=== PATIENT | female | born 1940 | race Caucasian/White ===

== ENCOUNTER 2019-01-12 10:30 | Emergency (ER) | payer MEDICARE ==
[~2019-01-12] VITALS: Ht 142.2 cm; Wt 55.9 kg
[~2019-01-12 10:30] MED LIST: ASPI-1265 PO; GABA-530 PO; HYDR-4353 PO; HYDR25TA4 PO; METF500T PO; MORP15TA PO; SITA50TA PO; SODI1TAB59 PO
[2019-01-12 10:48] VITALS: BP 124/71
--- NOTE | 2019-01-12 11:42 | NUR ---
ekg 1137
== END 2019-01-12 12:24 | disposition home or self-care (01) ==
LOC: ER 10:30
DX: S20.211A Contusion of right front wall of thorax, initial encounter (principal); Z79.82 Long term (current) use of aspirin; Z79.84 Long term (current) use of oral hypoglycemic drugs; Z79.899 Other long term (current) drug therapy; W18.39XA Other fall on same level, initial encounter; Y93.01 Activity, walking, marching and hiking; Y92.89 Other specified places as the place of occurrence of the external cause; Y99.8 Other external cause status
CPT/HCPCS: 71101; 99284

== ENCOUNTER 2019-02-13 16:13 | Emergency (ER) | payer MEDICARE ==
[~2019-02-13] VITALS: Ht 142.2 cm; Wt 118.0 kg
[2019-02-13] MEDS ORDERED: normal saline 1000ML IV soln IVB ONE (17:00)
[2019-02-13 17:33] LABS: BASOPHILS # (AUTO) 0.1 X10'3 (0-0.2); BASOPHILS % (AUTO) 1.3 % (0-1); EOSINOPHILS # (AUTO) 0.4 X10'3 (0-0.9); EOSINOPHILS % (AUTO) 7.1 % (0-6); HEMATOCRIT 40.4 % (35.0-45.0); HEMOGLOBIN 13.5 g/dl (12.0-16.0); LYMPHOCYTES # (AUTO) 1.9 X10'3 (1.1-4.8); LYMPHOCYTES % (AUTO) 35.4 % (21-51); MEAN CORPUSCULAR HEMOGLOBIN 30.2 PG (27.0-31.0); MEAN CORPUSCULAR HGB CONC 33.4 g/dL (33.0-36.5); MEAN CORPUSCULAR VOLUME 90.5 FL (78-98); MEAN PLATELET VOLUME 10.4 FL (7.4-10.4); MONOCYTES # (AUTO) 0.4 X10'3 (0-0.9); MONOCYTES % (AUTO) 7.3 % (2-12); NEUTROPHILS # (AUTO) 2.6 X10'3 (1.8-7.7); NEUTROPHILS % (AUTO) 48.9 % (42-75); PLATELET COUNT 194 X10'3 (140-440); RED BLOOD COUNT 4.47 X10'6 (4.20-5.60); RED CELL DISTRIBUTION WIDTH 14.1 % (11.5-14.5); WHITE BLOOD COUNT 5.3 X10'3 (4.5-11.0)
[2019-02-13 17:48] LABS: CLARITY,URINE CLEAR (Clear); COLOR,URINE STRAW (Yellow); GLUCOSE, URINE >=1000 mg/dl (Neg); KETONES,URINE NEGATIVE (Neg); LEUKOCYTE ESTERASE ,URINE NEGATIVE (Neg); NITRITES, URINE NEGATIVE (Neg); OCCULT BLOOD,URINE NEGATIVE (Neg); PH,URINE 5.5 (4.8-8.0); PROTEIN,URINE NEGATIVE (Neg); UA COLLECTION TYPE CLN CATCH MIDSTREAM; UROBILINOGEN,URINE 0.2 E.U/dL (0.2-1.0)
[2019-02-13 17:50] LABS: ALANINE AMINOTRANSFERASE 26 U/L (12-78); ALBUMIN 3.6 G/DL (3.4-5.0); ALBUMIN/GLOBULIN RATIO 0.9 (1.1-1.5); ALKALINE PHOSPHATASE 101 IU/L (46-116); ANION GAP 11 (8-16); ASPARTATE AMINO TRANSFERASE 22 U/L (10-37); BILIRUBIN,TOTAL 0.2 MG/DL (0.1-1.0); BLOOD UREA NITROGEN 13 MG/DL (7-18); BUN/CREATININE RATIO 14.9 (6.6-38.0); CALCIUM 8.8 MG/DL (8.5-10.1); CHLORIDE 102 MMOL/L (99-107); CREATININE 0.87 MG/DL (0.40-0.90); GLUCOSE 362 MG/DL (70-104); POTASSIUM 3.6 MMOL/L (3.5-5.1); SODIUM 136 MMOL/L (135-145); TOTAL CARBON DIOXIDE 22.7 MMOL/L (24-32); TOTAL PROTEIN 7.4 G/DL (6.4-8.2); eGFR 63 ML/MIN
[2019-02-13 17:57] VITALS: BP 114/64
[2019-02-13 17:58] LABS: SQUAMOUS EPITHELIAL CELL,UR FEW /LPF (FEW); WBC,URINE 0-4 /HPF (0-4); YEAST FEW /HPF (NEGATIVE)
[2019-02-13 17:59] LABS: BACTERIA,URINE NONE SEEN /HPF (Neg); RBC,URINE NONE SEEN /HPF (0-2)
== END 2019-02-13 18:53 | disposition home or self-care (01) ==
LOC: ER 16:14
DX: E11.65 Type 2 diabetes mellitus with hyperglycemia (principal); Z79.4 Long term (current) use of insulin; Z79.82 Long term (current) use of aspirin; Z79.899 Other long term (current) drug therapy
CPT/HCPCS: 36415; 70450; 80053; 81001; 82948; 85025; 93005; 99284; J7030

== ENCOUNTER 2019-05-26 08:31 | Inpatient (IN) | payer MEDICARE, MEDICAID ==
[~2019-05-26] VITALS: Ht 142.2 cm; Wt 55.5 kg
[2019-05-26] MEDS ORDERED: aspirin 81mg tab.chew PO ONE (08:40)
--- NOTE | 2019-05-26 08:54 | NUR ---
patient had [address] in via ems, aware, ok to hold
[2019-05-26 09:15] LABS: BASOPHILS # (AUTO) 0.1 X10'3 (0-0.2); BASOPHILS % (AUTO) 0.9 % (0-1); EOSINOPHILS # (AUTO) 0.3 X10'3 (0-0.9); EOSINOPHILS % (AUTO) 4.7 % (0-6); HEMATOCRIT 38.3 % (35.0-45.0); LYMPHOCYTES # (AUTO) 1.6 X10'3 (1.1-4.8); LYMPHOCYTES % (AUTO) 28.1 % (21-51); MEAN CORPUSCULAR HEMOGLOBIN 30.5 PG (27.0-31.0); MEAN CORPUSCULAR HGB CONC 33.8 g/dL (33.0-36.5); MEAN CORPUSCULAR VOLUME 90.1 FL (78-98); MEAN PLATELET VOLUME 10.5 FL (7.4-10.4); MONOCYTES # (AUTO) 0.4 X10'3 (0-0.9); MONOCYTES % (AUTO) 7.1 % (2-12); NEUTROPHILS # (AUTO) 3.3 X10'3 (1.8-7.7); NEUTROPHILS % (AUTO) 59.2 % (42-75); PLATELET COUNT 178 X10'3 (140-440); RED BLOOD COUNT 4.25 X10'6 (4.20-5.60); RED CELL DISTRIBUTION WIDTH 13.5 % (11.5-14.5); WHITE BLOOD COUNT 5.6 X10'3 (4.5-11.0)
[2019-05-26 09:27] LABS: ALANINE AMINOTRANSFERASE 24 U/L (12-78); ALBUMIN 3.5 G/DL (3.4-5.0); ALKALINE PHOSPHATASE 72 IU/L (46-116); ANION GAP 13 (8-16); ASPARTATE AMINO TRANSFERASE 14 U/L (10-37); BILIRUBIN,TOTAL 0.4 MG/DL (0.1-1.0); BLOOD UREA NITROGEN 15 MG/DL (7-18); BUN/CREATININE RATIO 16.7 (6.6-38.0); CALCIUM 9.3 MG/DL (8.5-10.1); CHLORIDE 102 MMOL/L (99-107); GLUCOSE 385 MG/DL (70-104); POTASSIUM 4.2 MMOL/L (3.5-5.1); SODIUM 139 MMOL/L (135-145); TOTAL CARBON DIOXIDE 23.9 MMOL/L (24-32); TOTAL PROTEIN 7.1 G/DL (6.4-8.2); eGFR 60 ML/MIN
[2019-05-26 09:32] LABS: MAGNESIUM 1.5 MG/DL (1.5-2.4)
[2019-05-26] MEDS ORDERED: normal saline 1000ML IV soln IVB ONE (09:40)
[2019-05-26] MEDS ORDERED: insulin regular, human 10 units/0.1 ml syringe IV ONE (09:40)
[2019-05-26] MEDS ORDERED: potassium Cl 20 mEq SR tablet PO PRN ×2 (09:55)
[2019-05-26] MEDS ORDERED: docusate sod 100mg capsule PO PRN (09:55)
[2019-05-26] MEDS ORDERED: mag hydrox/Alum hydrox/simeth 30ml oral suspension PO PRN (09:55)
[2019-05-26] MEDS ORDERED: glucagon, human recombinant 1mg kit SUBCUT PRN (09:55)
[2019-05-26] MEDS ORDERED: magnesium 4gm in 100ml NS 100 ML IV PRN (09:55)
[2019-05-26] MEDS ORDERED: MESSAGE TO PHARMACY PO ONE (09:55)
[2019-05-26] MEDS ORDERED: ondansetron/PF 4mg/2ml inj IV PRN (09:55)
[2019-05-26] MEDS ORDERED: dextrose ORAL solution 15 GM/59 ML bottle PO PRN ×2 (09:55)
[2019-05-26] MEDS ORDERED: magnesium Cl slow-release 64mg tablet PO PRN (09:55)
[2019-05-26] MEDS ORDERED: potassium CL 10mEq/100ml bag 100 ML IV PRN ×2 (09:55)
[2019-05-26] MEDS ORDERED: magnesium 2GM in 50ml NS 50 ML IV PRN (09:55)
[2019-05-26] MEDS ORDERED: dextrose 50%-water 50ml dispensing syringe IV PRN ×2 (09:55)
[2019-05-26] MEDS ORDERED: ATOR-2 PO (10:06)
[2019-05-26] MEDS ORDERED: ziprasidone IM 20mg inj **IM only IM ONE (10:25)
--- NOTE | 2019-05-26 10:36 | NUR ---
I TRIED TO COMPLETE HER MED REC, BUT SHE IS A POOR HISTORIAN AND CONFUSED
[2019-05-26 11:00] VITALS: BP 118/63
[2019-05-26] MEDS ORDERED: thiamine inj. 100 MG in normal saline 100ml IV soln 100 ML IV ONE (11:05)
[2019-05-26] MEDS ORDERED: LORazepam 2 mg/ml vial IV PRN (11:05)
[2019-05-26] MEDS ORDERED: haloperidol 5mg tablet PO PRN (11:05)
[2019-05-26] MEDS ORDERED: LORazepam 1 MG tablet PO PRN (11:05)
[2019-05-26] MEDS ORDERED: haloperidol lactate 5mg/ml inj IM PRN (11:05)
[2019-05-26] MEDS ORDERED: MVI, adult No.4 with vit. K 10 ML in dextrose 5% water 500ml 500 ML IV ONE ×2 (11:15)
[2019-05-26] MEDS ORDERED: NITR0.4T SL (11:16)
[2019-05-26] MEDS ORDERED: LANTUS SQ (11:16)
[2019-05-26] MEDS ORDERED: HYDR-4353 PO (11:18)
--- NOTE | 2019-05-26 11:38 | NUR ---
paged Dr. Solis asking if he wants a UA "Re: new admit in 311- April Marie. do you want a UA on her? none were ordered and just curious if you wanted us to send one. thanks, tee coombs [phone]"
[2019-05-26 12:13] LABS: HEMOGLOBIN A1C 11.3 % (4.5-6.2)
[2019-05-26 14:44] LABS: CLARITY,URINE CLEAR (Clear); COLOR,URINE YELLOW (Yellow); GLUCOSE, URINE >=1000 mg/dl (Neg); KETONES,URINE TRACE mg/dl (Neg); LEUKOCYTE ESTERASE ,URINE NEGATIVE (Neg); NITRITES, URINE NEGATIVE (Neg); OCCULT BLOOD,URINE NEGATIVE (Neg); PROTEIN,URINE NEGATIVE (Neg); UROBILINOGEN,URINE 0.2 E.U/dL (0.2-1.0)
[2019-05-26 14:47] LABS: UA COLLECTION TYPE NON-SPECIFIED
[2019-05-26 14:51] LABS: BACTERIA,URINE NONE SEEN /HPF (Neg); MUCUS STRANDS NONE SEEN /LPF (Neg); RBC,URINE NONE SEEN /HPF (0-2); SQUAMOUS EPITHELIAL CELL,UR FEW /LPF (FEW); WBC,URINE NONE SEEN /HPF (0-4)
[2019-05-26 15:00] VITALS: BP 106/57
--- NOTE | 2019-05-26 15:00 | NUR ---
SPOKE WITH DR. LU-CLARIFIED PATIENT'S ORIENTATION OPPOSED TO THE CHART/REPORT, PATIENT CONFIRMED TO HAVE A DISABLED DAUGHTER LIVING AT HOME WITH HER. PT'S SON, JOSE, HAS BEEN HERE VISITING THE PATIENT AND CONFIRMED THIS INFORMATION, AND SAID HE HELPS TAKE CARE OF THE PATIENT AND HIS DISABLED SISTER. PT'S SON REPORTS INCREASING CONFUSION/"MIX UPS" THE PATIENT IS HAVING WELL SOME AGGRESSIVE BEHAVIOR AT TIMES, ESPECIALLY AT NIGHT. HE ALSO REPORTS THAT THE PATIENT "DOESN'T TAKE HER MEDICATIONS INSTRUCTED, SOME OF WHICH SHE HAS STOPPED ALTOGETHER" (I.E. METFORMIN). DR. LU AND CHARGE NURSE MADE AWARE OF ALL OF THIS INFORMATION.
[2019-05-26 18:00] VITALS: BP 96/61
[2019-05-26] MEDS: insulin Lispro (HumaLOG) vial - multi-dose SQ SCH ×2 (18:03→18:56)
--- NOTE | 2019-05-26 18:19 | NUR ---
Problems reprioritized. Patient report given, questions answered & plan of care reviewed with ALEJANDRA.
[2019-05-26] MEDS: insulin glargine (Lantus) pen - multi-dose SQ SCH (20:57)
--- NOTE | 2019-05-26 21:21 | NUR ---
patient requested something for sleep. Called Dr. Salgado, got an order of restoril 15mg PO one time only. no other orders were given at this time.
[2019-05-26] MEDS ORDERED: temazepam 15mg capsule PO ONE (21:25)
[2019-05-26] MEDS: acetaminophen 325mg tablet PO PRN (21:52)
[2019-05-26 22:00] VITALS: BP 113/73
[2019-05-27 02:00] VITALS: BP 133/76
[2019-05-27 06:00] VITALS: BP 125/74
--- NOTE | 2019-05-27 06:00 | NUR ---
I have received report from Talia AHUJA and Roshni AHUJA and had the opportunity to ask questions and assume patient care.
[2019-05-27 06:48] LABS: BASOPHILS % (AUTO) 0.5 % (0-1); EOSINOPHILS # (AUTO) 0.4 X10'3 (0-0.9); EOSINOPHILS % (AUTO) 6.2 % (0-6); HEMATOCRIT 40.1 % (35.0-45.0); HEMOGLOBIN 13.6 g/dl (12.0-16.0); LYMPHOCYTES # (AUTO) 2.4 X10'3 (1.1-4.8); LYMPHOCYTES % (AUTO) 36.6 % (21-51); MEAN CORPUSCULAR HEMOGLOBIN 30.5 PG (27.0-31.0); MEAN CORPUSCULAR HGB CONC 33.9 g/dL (33.0-36.5); MEAN PLATELET VOLUME 10.7 FL (7.4-10.4); MONOCYTES # (AUTO) 0.5 X10'3 (0-0.9); MONOCYTES % (AUTO) 7.1 % (2-12); NEUTROPHILS # (AUTO) 3.3 X10'3 (1.8-7.7); NEUTROPHILS % (AUTO) 49.6 % (42-75); PLATELET COUNT 175 X10'3 (140-440); RED BLOOD COUNT 4.45 X10'6 (4.20-5.60); RED CELL DISTRIBUTION WIDTH 13.4 % (11.5-14.5); WHITE BLOOD COUNT 6.7 X10'3 (4.5-11.0)
[2019-05-27 06:53] LABS: ALANINE AMINOTRANSFERASE 27 U/L (12-78); ALBUMIN 3.5 G/DL (3.4-5.0); ALBUMIN/GLOBULIN RATIO 0.9 (1.1-1.5); ALKALINE PHOSPHATASE 71 IU/L (46-116); AMYLASE 72 U/L (25-115); ANION GAP 10 (8-16); ASPARTATE AMINO TRANSFERASE 22 U/L (10-37); BILIRUBIN,TOTAL 0.4 MG/DL (0.1-1.0); BLOOD UREA NITROGEN 16 MG/DL (7-18); BUN/CREATININE RATIO 17.2 (6.6-38.0); CALCIUM 9.3 MG/DL (8.5-10.1); CHLORIDE 106 MMOL/L (99-107); CHOL/HDL RATIO 3.9 (0.00-4.99); CHOLESTEROL 252 MG/DL (0-200); CREATININE 0.93 MG/DL (0.40-0.90); GLUCOSE 227 MG/DL (70-104); HDL CHOLESTEROL 64 MG/DL (35-60); LDL CHOLESTEROL 160 MG/DL (50-100); LIPASE 284 U/L (73-393); MAGNESIUM 1.8 MG/DL (1.5-2.4); PHOSPHORUS 3.7 MG/DL (2.3-4.5); POTASSIUM 3.8 MMOL/L (3.5-5.1); SODIUM 143 MMOL/L (135-145); TOTAL CARBON DIOXIDE 27.1 MMOL/L (24-32); TOTAL PROTEIN 7.2 G/DL (6.4-8.2); TRIGLYCERIDES 110 MG/DL (20-135); eGFR 58 ML/MIN
[2019-05-27] MEDS: aspirin 81mg tab.chew PO SCH (07:49)
[2019-05-27] MEDS: atorvastatin 20mg tablet PO SCH (07:49)
[2019-05-27] MEDS: thiamine 100mg tablet PO SCH (07:49)
[2019-05-27] MEDS: folic acid 1mg tablet PO SCH (07:49)
[2019-05-27] MEDS: multivitamins, therapeutics tablet PO SCH (07:49)
[2019-05-27] MEDS: K and/or MAG REPLACEMENT MC SCH (08:00)
[2019-05-27] MEDS ORDERED: enoxaparin 40mg/0.4ml syringe SQ SCH (08:00)
[2019-05-27] MEDS ORDERED: thiamine inj. 100 MG, folic acid inj. 2 MG in normal saline 100ml IV soln 100 ML IV SCH (08:00)
[2019-05-27] MEDS ORDERED: MVI, adult No.4 with vit. K 10 ML in dextrose 5% water 500ml 500 ML IV SCH ×2 (08:00)
[2019-05-27] MEDS ORDERED: non-formulary drug (Atorvastatin Calcium 1 TAB) PO SCH (08:00)
[2019-05-27] MEDS: insulin Lispro (HumaLOG) vial - multi-dose SQ SCH ×2 (08:09→21:50)
[2019-05-27] MEDS: acetaminophen 325mg tablet PO PRN ×2 (08:14→20:23)
[2019-05-27] MEDS ORDERED: normal saline 1000ml 1,000 ML IV SCH (08:50)
[2019-05-27] MEDS: diatr meglu/diatrizoate 30ml oral sol.-(3 dose) bottle PO SCH ×3 (10:34→15:30)
[2019-05-27 11:00] VITALS: BP 113/63
--- NOTE | 2019-05-27 14:10 | NUR ---
DM consult, A1c is 11.3; history uncontrolled DM II, Januvia and metformin at home. Per H&P patient is a fair historian however is delusional currently, possible dementia. Patient is not appropriate for bedside DM education at this time d/t confusion. Will need written DM education handout with verbal review and referral to outpatient DM education class if able before discharge. Has history of EtOH, drinks 1-2 4 oz bottle of wine/day, currently receiving thiamine and folic acid. Eating well, 75-100% PO intake of carb controlled, heart healthy diet. Will continue to follow. Recommend: 1. continue carb controlled, heart healthy diet 2. monitor for DM education-confused today per physical assessment and MD Note 3. weight per rx Addendum: 05/27/19 at [address] Amended: Links added.
[2019-05-27] MEDS ORDERED: iohexol 300mg/ml 100ml inj. ONE (15:35)
[2019-05-27 17:00] VITALS: BP 101/60
[2019-05-27 18:00] VITALS: BP 114/43
--- NOTE | 2019-05-27 18:25 | NUR ---
Problems reprioritized. Patient report given, questions answered & plan of care reviewed with Briana AHUJA and Roshni AHUJA.
[2019-05-27] MEDS: insulin glargine (Lantus) pen - multi-dose SQ SCH (21:47)
[2019-05-27 22:00] VITALS: BP 110/65
[2019-05-27] MEDS ORDERED: temazepam 15mg capsule PO PRN (23:05)
[2019-05-27] MEDS ORDERED: HYDROcodone/acetaminophen 5mg/325mg tablet PO PRN (23:05)
[2019-05-27] MEDS: HYDROcodone/acetaminophen 10/325mg tab PO PRN (23:29)
[2019-05-28 02:00] VITALS: BP 95/67
[2019-05-28 05:01] LABS: BASOPHILS % (AUTO) 0.6 % (0-1); EOSINOPHILS # (AUTO) 0.3 X10'3 (0-0.9); HEMOGLOBIN 12.2 g/dl (12.0-16.0); LYMPHOCYTES # (AUTO) 2.9 X10'3 (1.1-4.8); MEAN CORPUSCULAR HEMOGLOBIN 30.8 PG (27.0-31.0); MEAN CORPUSCULAR VOLUME 90.6 FL (78-98); MEAN PLATELET VOLUME 10.2 FL (7.4-10.4); MONOCYTES # (AUTO) 0.8 X10'3 (0-0.9); MONOCYTES % (AUTO) 9.7 % (2-12); NEUTROPHILS # (AUTO) 4.3 X10'3 (1.8-7.7); NEUTROPHILS % (AUTO) 51.7 % (42-75); PLATELET COUNT 165 X10'3 (140-440); RED BLOOD COUNT 3.97 X10'6 (4.20-5.60); RED CELL DISTRIBUTION WIDTH 13.8 % (11.5-14.5); WHITE BLOOD COUNT 8.4 X10'3 (4.5-11.0)
[2019-05-28 05:22] LABS: ALANINE AMINOTRANSFERASE 24 U/L (12-78); ALBUMIN 3.1 G/DL (3.4-5.0); ALBUMIN/GLOBULIN RATIO 0.9 (1.1-1.5); ALKALINE PHOSPHATASE 68 IU/L (46-116); AMYLASE 62 U/L (25-115); ANION GAP 9 (8-16); ASPARTATE AMINO TRANSFERASE 19 U/L (10-37); BILIRUBIN,TOTAL 0.4 MG/DL (0.1-1.0); BLOOD UREA NITROGEN 15 MG/DL (7-18); BUN/CREATININE RATIO 16.9 (6.6-38.0); CALCIUM 8.9 MG/DL (8.5-10.1); CHLORIDE 109 MMOL/L (99-107); CREATININE 0.89 MG/DL (0.40-0.90); GLUCOSE 121 MG/DL (70-104); LIPASE 190 U/L (73-393); MAGNESIUM 1.6 MG/DL (1.5-2.4); PHOSPHORUS 3.8 MG/DL (2.3-4.5); POTASSIUM 3.6 MMOL/L (3.5-5.1); SODIUM 145 MMOL/L (135-145); TOTAL CARBON DIOXIDE 27.4 MMOL/L (24-32); TOTAL PROTEIN 6.4 G/DL (6.4-8.2); eGFR 61 ML/MIN
--- NOTE | 2019-05-28 05:26 | NUR ---
I reviewed and agree with all the documentation performed by Pam
[2019-05-28 06:00] VITALS: BP 107/61
--- NOTE | 2019-05-28 06:46 | NUR ---
I have received report from Briana AHUJA and Roshni AHUJA and had the opportunity to ask questions and assume patient care.
[2019-05-28] MEDS: K and/or MAG REPLACEMENT MC SCH (08:00)
[2019-05-28] MEDS: thiamine 100mg tablet PO SCH (08:03)
[2019-05-28] MEDS: enoxaparin 30mg/0.3ml syringe SUBCUT SCH (08:04)
[2019-05-28] MEDS: aspirin 81mg tab.chew PO SCH (08:04)
[2019-05-28] MEDS: atorvastatin 20mg tablet PO SCH (08:04)
[2019-05-28] MEDS: multivitamins, therapeutics tablet PO SCH (08:04)
[2019-05-28] MEDS: folic acid 1mg tablet PO SCH (08:04)
[2019-05-28] MEDS: insulin Lispro (HumaLOG) vial - multi-dose SQ SCH ×3 (08:24→19:09)
--- NOTE | 2019-05-28 08:47 | NUR ---
Page to Case Management 311 Call y'all call us about both of these patients. Thank You.
--- NOTE | 2019-05-28 10:19 | NUR ---
PAGER ID: [phone] MESSAGE: [phone]. The son is back in the room if you would still like to stop by and talk with him. Thank You. ACCE [phone]
[2019-05-28 11:00] VITALS: BP 103/63
[2019-05-28] MEDS: acetaminophen 325mg tablet PO PRN (12:24)
[2019-05-28 15:00] VITALS: BP 133/60
[2019-05-28 18:00] VITALS: BP 116/56
--- NOTE | 2019-05-28 18:00 | NUR ---
Patient in room MED 311. I have received report from Francis AHUJA and had the opportunity to ask questions and assume patient care.
--- NOTE | 2019-05-28 18:12 | NUR ---
Problems reprioritized. Patient report given, questions answered & plan of care reviewed with Roshni AHUJA and Briana AHUJA.
[2019-05-28] MEDS: insulin glargine (Lantus) pen - multi-dose SQ SCH (21:40)
[2019-05-28 22:00] VITALS: BP 94/55
[2019-05-29] MEDS: HYDROcodone/acetaminophen 10/325mg tab PO PRN ×2 (00:30→05:06)
[2019-05-29 03:00] VITALS: BP 107/62
[2019-05-29 05:41] LABS: BASOPHILS % (AUTO) 0.6 % (0-1); EOSINOPHILS # (AUTO) 0.2 X10'3 (0-0.9); EOSINOPHILS % (AUTO) 3.9 % (0-6); HEMATOCRIT 37.9 % (35.0-45.0); HEMOGLOBIN 12.7 g/dl (12.0-16.0); LYMPHOCYTES # (AUTO) 1.4 X10'3 (1.1-4.8); LYMPHOCYTES % (AUTO) 22.3 % (21-51); MEAN CORPUSCULAR HEMOGLOBIN 30.8 PG (27.0-31.0); MEAN CORPUSCULAR HGB CONC 33.4 g/dL (33.0-36.5); MEAN CORPUSCULAR VOLUME 92.2 FL (78-98); MEAN PLATELET VOLUME 10.6 FL (7.4-10.4); MONOCYTES # (AUTO) 0.5 X10'3 (0-0.9); MONOCYTES % (AUTO) 8.2 % (2-12); NEUTROPHILS # (AUTO) 4.1 X10'3 (1.8-7.7); PLATELET COUNT 173 X10'3 (140-440); RED BLOOD COUNT 4.11 X10'6 (4.20-5.60); RED CELL DISTRIBUTION WIDTH 13.8 % (11.5-14.5); WHITE BLOOD COUNT 6.3 X10'3 (4.5-11.0)
[2019-05-29 06:00] LABS: ALANINE AMINOTRANSFERASE 38 U/L (12-78); ALBUMIN 3.1 G/DL (3.4-5.0); ALBUMIN/GLOBULIN RATIO 0.8 (1.1-1.5); ALKALINE PHOSPHATASE 85 IU/L (46-116); AMYLASE 80 U/L (25-115); ANION GAP 8 (8-16); ASPARTATE AMINO TRANSFERASE 37 U/L (10-37); BILIRUBIN,TOTAL 0.3 MG/DL (0.1-1.0); BLOOD UREA NITROGEN 13 MG/DL (7-18); BUN/CREATININE RATIO 12.1 (6.6-38.0); CHLORIDE 107 MMOL/L (99-107); CREATININE 1.07 MG/DL (0.40-0.90); GLUCOSE 255 MG/DL (70-104); LIPASE 285 U/L (73-393); MAGNESIUM 1.7 MG/DL (1.5-2.4); POTASSIUM 4.1 MMOL/L (3.5-5.1); SODIUM 142 MMOL/L (135-145); TOTAL CARBON DIOXIDE 26.8 MMOL/L (24-32); TOTAL PROTEIN 6.9 G/DL (6.4-8.2); eGFR 49 ML/MIN
[2019-05-29 06:30] LABS: LARGE PLATELETS FEW; PLATELET ESTIMATE NORMAL
[2019-05-29 07:00] VITALS: BP 112/45
--- NOTE | 2019-05-29 07:27 | NUR ---
Patient in room MED 311. I have received report from LEIGHA Barakat and had the opportunity to ask questions and assume patient care.
[2019-05-29] MEDS: K and/or MAG REPLACEMENT MC SCH (08:00)
[2019-05-29] MEDS: atorvastatin 20mg tablet PO SCH (08:10)
[2019-05-29] MEDS: aspirin 81mg tab.chew PO SCH (08:10)
[2019-05-29] MEDS: multivitamins, therapeutics tablet PO SCH (08:11)
[2019-05-29] MEDS: thiamine 100mg tablet PO SCH (08:11)
[2019-05-29] MEDS: folic acid 1mg tablet PO SCH (08:11)
[2019-05-29] MEDS: enoxaparin 30mg/0.3ml syringe SUBCUT SCH (08:12)
[2019-05-29] MEDS: insulin Lispro (HumaLOG) vial - multi-dose SQ SCH ×2 (08:33→13:03)
[2019-05-29] MEDS ORDERED: HYDROcodone/acetaminophen 10/325mg tab PO PRN ×2 (08:55→09:55)
[2019-05-29 11:00] VITALS: BP 113/55
--- NOTE | 2019-05-29 14:56 | NUR ---
PT. DISCHARGED TO [facility] AT 1355. PT. WAS TRANSFERRED THERE BY [employer]. HER SON WAS HERE WHEN SHE WAS PICKED UP. PT. IV WAS D/C INTACT. PT. LEFT WITH ALL BELONGINGS. REPORT WAS CALLED INTO THE NEW FACILITY AND GIVEN TO LEIGHA AREVALO. ALL QUESTIONED ANSWERED.
== END 2019-05-29 13:55 | DRG 311 ==
LOC: ER 08:32 → MED 3N 10:48 → UNDOADMOB 10:48 → OBSVTOIN 11:14 → MED 3N 11:14 → INTOOBSV 11:14
PROVIDERS: ADMIT Family Medicine; ATTEND Internal Medicine
PROC: BW211ZZ Computerized Tomography (CT Scan) of Abdomen and Pelvis using Low Osmolar Contrast (ICD-10-PCS; principal; 2019-05-27)
DX: I20.9 Angina pectoris, unspecified (principal); G93.40 Encephalopathy, unspecified; E11.65 Type 2 diabetes mellitus with hyperglycemia; Z96.651 Presence of right artificial knee joint; I10 Essential (primary) hypertension; M54.5 Low back pain; R10.9 Unspecified abdominal pain; E78.5 Hyperlipidemia, unspecified; F03.90 Unspecified dementia, unspecified severity, without behavioral disturbance, psychotic disturbance, mood disturbance, and anxiety; G89.29 Other chronic pain; Z79.4 Long term (current) use of insulin; Z79.82 Long term (current) use of aspirin; Z79.899 Other long term (current) drug therapy; Z87.891 Personal history of nicotine dependence; Z98.891 History of uterine scar from previous surgery; Z72.89 Other problems related to lifestyle
CPT/HCPCS: 36415; 71045; 74018; 74177; 80053; 80061; 81001; 82140; 82150; 82948; 83036; 83690; 83735; 83880; 84100; 84484; 85025; 85610; 87081; 93005; 93306; 96374; 97110; 97116; 97162; 99285; G0378; J1650; J1815; J3411; J3490; J7030; J7060; Q9963; Q9967

== ENCOUNTER 2019-06-28 00:22 | Emergency (ER) | payer MEDICARE, MEDICAID ==
[~2019-06-28] VITALS: Ht 154.9 cm; Wt 57.1 kg
[~2019-06-28 00:22] MED LIST changes: +ATOR-2 PO; -GABA-530 PO; -HYDR25TA4 PO; -METF500T PO; -MORP15TA PO; +NITR0.4T SL; -SITA50TA PO; -SODI1TAB59 PO
--- NOTE | 2019-06-28 01:20 | NUR ---
PT GRANDDAUGHTER PABLO AT BEDSIDE
[2019-06-28] MEDS ORDERED: acetaminophen 325mg tablet PO ONE (01:35)
--- NOTE | 2019-06-28 01:44 | NUR ---
APS REPORT FILED-CALLED [facility] AND SPOKE WITH ZOILA-FAXED PAPERWORK.
[2019-06-28] MEDS ORDERED: quetiapine 100mg tablet PO ONE (02:05)
[2019-06-28] MEDS ORDERED: QUET50TA PO (02:19)
[2019-06-28] MEDS ORDERED: LORazepam 1 MG tablet PO ONE (02:40)
[2019-06-28] MEDS ORDERED: haloperidol 5mg tablet PO ONE (02:40)
--- NOTE | 2019-06-28 02:45 | NUR ---
ATTEMPTED TO DC PT WITH SON-PT REFUSED IN PARKING LOT TO GO AND TRIED TO WANDER AWAY FROM FAMILY. PT RE-DIRECTED BACK TO ER ROOM FOR SAFETY. NEW MEDICATION ORDERS RECEIVED AND GIVEN. FAMILY WAITING IN LOBBY FOR PT TO CALM DOWN.
[2019-06-28 03:43] LABS: BASOPHILS # (AUTO) 0.1 X10'3 (0-0.2); BASOPHILS % (AUTO) 0.8 % (0-1); EOSINOPHILS # (AUTO) 0.1 X10'3 (0-0.9); EOSINOPHILS % (AUTO) 1.7 % (0-6); HEMATOCRIT 33.8 % (35.0-45.0); HEMOGLOBIN 11.5 g/dl (12.0-16.0); LYMPHOCYTES # (AUTO) 1.5 X10'3 (1.1-4.8); MEAN CORPUSCULAR HEMOGLOBIN 30.6 PG (27.0-31.0); MEAN CORPUSCULAR VOLUME 90.1 FL (78-98); MEAN PLATELET VOLUME 10.5 FL (7.4-10.4); MONOCYTES # (AUTO) 0.8 X10'3 (0-0.9); MONOCYTES % (AUTO) 9.6 % (2-12); NEUTROPHILS # (AUTO) 5.7 X10'3 (1.8-7.7); NEUTROPHILS % (AUTO) 69.9 % (42-75); PLATELET COUNT 187 X10'3 (140-440); RED BLOOD COUNT 3.75 X10'6 (4.20-5.60); RED CELL DISTRIBUTION WIDTH 13.1 % (11.5-14.5); WHITE BLOOD COUNT 8.1 X10'3 (4.5-11.0)
[2019-06-28 03:54] LABS: ALANINE AMINOTRANSFERASE 31 U/L (12-78); ALBUMIN 3.4 G/DL (3.4-5.0); ALBUMIN/GLOBULIN RATIO 0.9 (1.1-1.5); ALKALINE PHOSPHATASE 99 IU/L (46-116); ANION GAP 7 (8-16); ASPARTATE AMINO TRANSFERASE 20 U/L (10-37); BILIRUBIN,TOTAL 0.3 MG/DL (0.1-1.0); BLOOD UREA NITROGEN 25 MG/DL (7-18); BUN/CREATININE RATIO 20.7 (6.6-38.0); CALCIUM 9.4 MG/DL (8.5-10.1); CHLORIDE 102 MMOL/L (99-107); CREATININE 1.21 MG/DL (0.40-0.90); GLUCOSE 441 MG/DL (70-104); SODIUM 136 MMOL/L (135-145); TOTAL CARBON DIOXIDE 26.6 MMOL/L (24-32); TOTAL PROTEIN 7.4 G/DL (6.4-8.2); eGFR 43 ML/MIN
[2019-06-28] MEDS ORDERED: insulin regular, human 10 units/0.1 ml syringe SQ ONE ×2 (03:55→22:10)
[2019-06-28 04:04] LABS: ETHANOL < 0.010 GM/DL (0.0-0.010)
--- NOTE | 2019-06-28 04:14 | NUR ---
CALLED REPORT TO MINOO IN OVERFLOW. PT THEN TRANSFERRED OVER.
--- NOTE | 2019-06-28 04:35 | NUR ---
Pt. ambulated over from main ER with minimal assistance of two staff members. Pt. presents as confused and restless, A&O to name only. She is assisted in to bed where she lays talking to herself, possibly responding to internal stimuli. Staff member remains close by for safety precautions.
--- NOTE | 2019-06-28 05:02 | NUR ---
Unable to complete Med Recc per pt. level of confusion. Will endorse to AM shift, and see if can be obtained from pt's family tomorrow.
--- NOTE | 2019-06-28 05:53 | NUR ---
Unable to obtain UA at this time per pt. uncooperative r/t confusion. However pt. remains continent of urine and is able to ambulate to BR with two-person assist. She remains confused and restless, CRN notified and pt. will likely be placed on a 1:1 for safety precautions. Will endorse to AM shift.
[2019-06-28 06:42] LABS: CLARITY,URINE CLEAR (Clear); COLOR,URINE YELLOW (Yellow); GLUCOSE, URINE >=1000 mg/dl (Neg); KETONES,URINE NEGATIVE (Neg); LEUKOCYTE ESTERASE ,URINE NEGATIVE (Neg); NITRITES, URINE NEGATIVE (Neg); OCCULT BLOOD,URINE NEGATIVE (Neg); PROTEIN,URINE NEGATIVE (Neg); UROBILINOGEN,URINE 0.2 E.U/dL (0.2-1.0)
[2019-06-28 06:45] LABS: URINE AMPHETAMINE SCREEN NEGATIVE (Neg); URINE BARBITUATE SCREEN NEGATIVE (Neg); URINE BENZODIAZEPINES SCREEN NEGATIVE (Neg); URINE CANNABINOID SCREEN NEGATIVE (Neg); URINE COCAINE SCREEN NEGATIVE (Neg); URINE METHADONE SCREEN NEGATIVE (Neg); URINE OPIATE SCREEN POSITIVE (Neg); URINE PHENCYCLIDINE SCREEN NEGATIVE (Neg)
[2019-06-28 06:50] LABS: UA COLLECTION TYPE CLN CATCH MIDSTREAM
--- NOTE | 2019-06-28 06:54 | NUR ---
SS paged for eval and referral.
[2019-06-28 06:56] LABS: HYALINE CASTS 0-3 /LPF (NEGATIVE); SQUAMOUS EPITHELIAL CELL,UR FEW /LPF (FEW)
[2019-06-28 07:02] LABS: WBC,URINE 0-4 /HPF (0-4)
[2019-06-28 07:03] LABS: RBC,URINE NONE SEEN /HPF (0-2)
[2019-06-28 07:04] LABS: BACTERIA,URINE FEW /HPF (Neg); WAXY CASTS,URINE 0-3 /LPF (NEGATIVE)
[2019-06-28] MEDS ORDERED: LANTUS SQ (09:04)
--- NOTE | 2019-06-28 09:30 | NUR ---
KALPANA, JANITORIAL ASSISTANT, CELL [phone]. PATIENT VERY DROWSY AT THIS TIME
--- NOTE | 2019-06-28 15:40 | NUR ---
PATIENT'S EBONIE SHAH AT BEDSIDE: PABLO WORKS HERE IN EVS
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
--- NOTE | 2019-06-28 16:37 | NUR ---
SPOKE WITH STEVE, INTERNATIONAL MARKETING INTERN AND JOSE WHO IS THE PATIENT'S SON, NOT UNCLE: JOSE IS PABLO'S UNCLE KALPANA WILL CALL [employer] WHEN SHE RETURNS TO HER DESK FOR BED AVAILABILITY
--- NOTE | 2019-06-28 21:02 | NUR ---
Elopement band #41 placed on pt's left wrist.
--- NOTE | 2019-06-28 21:42 | NUR ---
Assumed care of pt., pt. sleeping on her left side at this time, RR even and unlabored.
--- NOTE | 2019-06-28 22:12 | NUR ---
Pt. has an HS BS of 305, MD Murguia notified, obtained new order for 5 units of Humulin R, SQ now.
--- NOTE | 2019-06-28 22:22 | NUR ---
Double checked insulin with LEIGHA Bishop
--- NOTE | 2019-06-28 22:34 | NUR ---
Unable to awaken pt. to give HS snack with insulin, per MD Hoffmanee, administered only 2.5 units of ordered 5units of Humulin.
--- NOTE | 2019-06-28 23:30 | NUR ---
Pt. awakened and helped to ambulate with the assistance of two staff members to bed 21. She returns immediately back to sleep, laying on her right side, rr even and unlabored.
--- NOTE | 2019-06-29 00:17 | NUR ---
Packet faxed to [facility]. Unable to confirm receipt of packet as tqt-is-lignolto hours.
--- NOTE | 2019-06-29 01:33 | NUR ---
Pt. sleeping on her rt. side at this time, appears to be resting comfortably, rr even and unlabored.
--- NOTE | 2019-06-29 03:31 | NUR ---
Pt. continues to sleep on her rt. side, will make occassional body adjustments. RR even and unlabored, will continue to monitor. She remains on 1:1.
--- NOTE | 2019-06-29 05:31 | NUR ---
Pt. continues to sleep, appears to be resting comfortably. Remains on 1:1 for safety precautions.
--- NOTE | 2019-06-29 06:43 | NUR ---
Assumed care of pt. She is awake and in a pleasant mood. Provided her decaf coffee at her request. She is sitting up in a chair next to her bed
--- NOTE | 2019-06-29 07:38 | NUR ---
Spoke with Dr Harris concerning pt blood sugar. Plan is to continue to monitor ACHS
--- NOTE | 2019-06-29 07:40 | NUR ---
Pt is not to be put on protocol at this time per Dr Harris
[2019-06-29] MEDS ORDERED: nitroGLYCERIN 0.4mg SUBLingual tab SL SCH (08:00)
[2019-06-29] MEDS: aspirin 81mg tab.chew PO SCH (08:15)
[2019-06-29] MEDS: atorvastatin 20mg tablet PO SCH (08:15)
[2019-06-29] MEDS: QUEtiapine 25mg tablet PO SCH ×2 (08:25→20:06)
--- NOTE | 2019-06-29 08:38 | NUR ---
Pt sitting up and eating breakfast. She remarked how delicious it is
[2019-06-29] MEDS: HYDROcodone/acetaminophen 10/325mg tab PO PRN ×2 (09:05→20:06)
--- NOTE | 2019-06-29 10:29 | NUR ---
Ptb ambulated to the bathroom on her own with a steady gait
--- NOTE | 2019-06-29 12:19 | NUR ---
Pt up and eating her lunch. PLeasant and cooperative.
--- NOTE | 2019-06-29 13:20 | NUR ---
Pt having a cup of tea
--- NOTE | 2019-06-29 13:24 | NUR ---
Pt ate 75% of her lunch tray
--- NOTE | 2019-06-29 15:17 | NUR ---
Pt up to the bathroom
--- NOTE | 2019-06-29 16:39 | NUR ---
pT GIVEN A BED BATH
--- NOTE | 2019-06-29 17:08 | NUR ---
Pt resting comfortably on her back
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
--- NOTE | 2019-06-29 20:00 | NUR ---
Pt's HS accucheck was 371. She ate her entire dinner tray. 14 units of scheduled Lantus was given. Pt is medication compliant and requests PRN [place] which was given. Respirations WNL
[2019-06-29] MEDS: insulin glargine (Lantus) pen - multi-dose SQ SCH (20:19)
--- NOTE | 2019-06-29 22:00 | NUR ---
Pt is asleep on R side respirations WNL.
--- NOTE | 2019-06-30 | NUR ---
Pt wakes up to use the restroom. She is pleasantly confused, and needs to be directed to where the bathroom is. After using the restroom she returnns to her bed and falls asleep.
--- NOTE | 2019-06-30 02:00 | NUR ---
PT asleep on her back RR WNL no signs or symptoms of distress at this time.
--- NOTE | 2019-06-30 04:00 | NUR ---
Pt used the bathroom, returned back to her bed and fell asleep
--- NOTE | 2019-06-30 07:09 | NUR ---
Pt is asleep on her left side. No s/s of distress respirations are even and unlabored.
--- NOTE | 2019-06-30 07:33 | NUR ---
BG 223 fasting
[2019-06-30] MEDS: HYDROcodone/acetaminophen 10/325mg tab PO PRN ×2 (08:00→20:04)
[2019-06-30] MEDS: QUEtiapine 25mg tablet PO SCH ×2 (08:00→19:59)
[2019-06-30] MEDS: atorvastatin 20mg tablet PO SCH (08:00)
[2019-06-30] MEDS: aspirin 81mg tab.chew PO SCH (08:00)
--- NOTE | 2019-06-30 08:24 | NUR ---
Pt up eating breakfast and talking about her daughter Claudette
--- NOTE | 2019-06-30 09:58 | NUR ---
Client sleeping on her left side in noapparent distress. Respirations are even and unlabored
--- NOTE | 2019-06-30 10:11 | NUR ---
PT SLEEPING ON LEFT SIDE
--- NOTE | 2019-06-30 11:33 | NUR ---
PT COMPLETED HER HYGIENE AND IS NOW COLORING AT HER BED
--- NOTE | 2019-06-30 12:18 | NUR ---
pt has been sitting up in the chair for almost an hour and has been coloring jand being good
[2019-06-30] MEDS ORDERED: MESSAGE TO PHARMACY PO ONE (13:05)
[2019-06-30] MEDS ORDERED: glucagon, human recombinant 1mg kit SUBCUT PRN (13:05)
[2019-06-30] MEDS ORDERED: dextrose 50%-water 50ml dispensing syringe IV PRN ×2 (13:05)
[2019-06-30] MEDS ORDERED: dextrose ORAL solution 15 GM/59 ML bottle PO PRN ×2 (13:05)
--- NOTE | 2019-06-30 13:05 | NUR ---
Spoke with Dr. Harris regarding patients elevated blood glucose and possible need for short acting insulin. Dr. Harris stated to start patient on hypo/hyper glycemic protcol. Will place order and administer as prescribed by MD. Will notify Handsel RN regarding new orders.
[2019-06-30] MEDS: insulin Lispro (HumaLOG) vial - multi-dose SQ SCH ×2 (13:27→19:14)
--- NOTE | 2019-06-30 14:17 | NUR ---
Pt sitting up next to her bed and coloring
--- NOTE | 2019-06-30 15:10 | NUR ---
pt is sitting in the chair by bedside just coloring and relaxing. pt has been up to the bathroom
--- NOTE | 2019-06-30 15:20 | NUR ---
Pt up to the bathroom ambulating with steady gait
--- NOTE | 2019-06-30 16:22 | NUR ---
Pt on phone with oldest son. He is coming to visit later.
--- NOTE | 2019-06-30 17:41 | NUR ---
Pt BG 132
--- NOTE | 2019-06-30 18:30 | NUR ---
Received report and assumed care of patient that is lying in bed eating dinner.
--- NOTE | 2019-06-30 19:20 | NUR ---
The patient is in bed talking to her son Medhat.
[2019-06-30] MEDS: insulin glargine (Lantus) pen - multi-dose SQ SCH (19:54)
--- NOTE | 2019-06-30 20:50 | NUR ---
Pt c/o of headpain; RN had given pt pain meds. Provided pt with ice pack wrapped in pillowcase to place on back of head.
--- NOTE | 2019-06-30 21:30 | NUR ---
The patient is at the nurses station talking and asking questions.
--- NOTE | 2019-06-30 22:57 | NUR ---
Patient awake and up to the bathroom. Denies needs.
--- NOTE | 2019-07-01 00:45 | NUR ---
Pt up to bathroom to perform morning toilet. No assistance required.
--- NOTE | 2019-07-01 01:45 | NUR ---
The patient is awake thinking it's daytime. Redirected back to bed.
[2019-07-01] MEDS ORDERED: quetiapine 100mg tablet PO ONE (02:15)
[2019-07-01] MEDS ORDERED: QUEtiapine 25mg tablet PO ONE (02:15)
[2019-07-01] MEDS ORDERED: quetiapine 100mg tablet PO SCH (02:15)
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
--- NOTE | 2019-07-01 03:15 | NUR ---
Patient is asleep on her left side. Breathing unlabored. No s/s of distress.
--- NOTE | 2019-07-01 05:08 | NUR ---
The patient is sleeping with her head at the foot of the bed. She is on her right side.
--- NOTE | 2019-07-01 08:00 | NUR ---
PT WOKE UP HAD BREAKFAST AND TOOK ALL HER MEDICATIONS
[2019-07-01] MEDS: insulin Lispro (HumaLOG) vial - multi-dose SQ SCH ×2 (08:21→19:03)
[2019-07-01] MEDS: QUEtiapine 25mg tablet PO SCH ×2 (08:22→20:34)
[2019-07-01] MEDS: aspirin 81mg tab.chew PO SCH (08:22)
[2019-07-01] MEDS: atorvastatin 20mg tablet PO SCH (08:26)
--- NOTE | 2019-07-01 09:00 | NUR ---
DOOR TO DOOR SELLING AGENT CALLED IN REGARDS TO [facility] SENDING THE PATIENT [facility]
--- NOTE | 2019-07-01 09:36 | NUR ---
PAGE SENT TO DENTAL CHAIR ASSEMBLER RE: DISCHARGE PLANNING FOR [facility]
--- NOTE | 2019-07-01 09:57 | NUR ---
WAITING FOR POOL NURSE. PT IS CURRENTLY SLEEPING
--- NOTE | 2019-07-01 11:00 | NUR ---
pt interacting with staff. pt is up walking around.
--- NOTE | 2019-07-01 12:00 | NUR ---
pt is walking around
--- NOTE | 2019-07-01 13:00 | NUR ---
bs 89 so no insulin given and pt barely ate anything for lunch
--- NOTE | 2019-07-01 14:00 | NUR ---
pt is resting
--- NOTE | 2019-07-01 15:00 | NUR ---
Pt is up and walking around. spoke with son about poss placement for the patient. son states he will help work on placing the patient tomorrow
--- NOTE | 2019-07-01 16:00 | NUR ---
pt is up and making her bed and asking for some coffee
--- NOTE | 2019-07-01 17:00 | NUR ---
pt is sleeping
[2019-07-01] MEDS: HYDROcodone/acetaminophen 10/325mg tab PO PRN ×2 (18:00→20:49)
--- NOTE | 2019-07-01 18:45 | NUR ---
Received report and assumed care of patient from Pat Garces. The patient is eating dinner.
--- NOTE | 2019-07-01 19:14 | NUR ---
The patient has just went to the bathroom and performed nighttime routine. She has clean new scrubs. Reports she's going to nap.
[2019-07-01] MEDS: insulin glargine (Lantus) pen - multi-dose SQ SCH (20:44)
--- NOTE | 2019-07-01 22:32 | NUR ---
The patient is sleeping on her right side. Respirations are unlabored. No s/s of distress.
--- NOTE | 2019-07-02 01:15 | NUR ---
The patient is sleeping on her left side. Respirations are unlabored. No s/s of distress.
--- NOTE | 2019-07-02 02:29 | NUR ---
Patient continues to sleep. Respirations unlabored. No s/s of distress.
--- NOTE | 2019-07-02 05:09 | NUR ---
The patient is asleep on her right side. Respitrations are unlabored. No s/s of distress.
--- NOTE | 2019-07-02 06:26 | NUR ---
Patient sleeping on left side. No distress observed. Continue to monitor.
--- NOTE | 2019-07-02 08:20 | NUR ---
Patient eating breakfast. No distress observed. Continue to monitor.
[2019-07-02] MEDS: aspirin 81mg tab.chew PO SCH (08:42)
[2019-07-02] MEDS: QUEtiapine 25mg tablet PO SCH ×2 (08:42→20:06)
[2019-07-02] MEDS: atorvastatin 20mg tablet PO SCH (08:44)
[2019-07-02] MEDS: insulin Lispro (HumaLOG) vial - multi-dose SQ SCH ×2 (10:39→18:28)
--- NOTE | 2019-07-02 10:49 | NUR ---
Breaking Primary RN, Beatris psychosocial rehabilitation counselor, called to let us know that she is reviewing pt and will call back and let us know what is going on
--- NOTE | 2019-07-02 12:17 | NUR ---
Patient sleeping on left side. No distress observed. Continue to monitor.
--- NOTE | 2019-07-02 13:15 | NUR ---
Patient's BG is 145. Patient states she is not hungry and does not want to eat. Continue to monitor.
--- NOTE | 2019-07-02 14:07 | NUR ---
Family friend visiting patient. Patient calm and in no distress. Continue to monitor.
--- NOTE | 2019-07-02 14:51 | NUR ---
Beatris, Corrosion Control Technician, speaking with patient.
[2019-07-02] MEDS: HYDROcodone/acetaminophen 10/325mg tab PO PRN (14:59)
--- NOTE | 2019-07-02 16:24 | NUR ---
breaking primary RN, pt is sitting at the side of her bed, she is quietly reading a magazine, no s/s of anxiety observed
--- NOTE | 2019-07-02 17:30 | NUR ---
Patient sitting in bed looking at a magazine. No distress noted. Continue to monitor.
--- NOTE | 2019-07-02 19:08 | NUR ---
The patient is alert and mildly confused. She is very cooperative with the unit routine. She knew that she was in a hospital but was unsure which one she was at. She stated the year was either 2019 or 2018. She knew the season was fall. She is eating well. She is pending DC home to her son.
--- NOTE | 2019-07-02 19:09 | NUR ---
The patient's son, Medhat, has not come to pick the patient up. He was called and left a message but has not yet called back. He is aware that the patient is being discharged.
[2019-07-02] MEDS: insulin glargine (Lantus) pen - multi-dose SQ SCH (20:08)
--- NOTE | 2019-07-02 20:36 | NUR ---
The patient's son has not returned our phone call and he has not come to burr picker his mother. Her HS medications were given.
--- NOTE | 2019-07-02 21:32 | NUR ---
Dayna, the patient's son called back and stated he was told the patient would be evaluated by a psychiatrist and released in the am.
--- NOTE | 2019-07-02 22:53 | NUR ---
The patient currently appears to be asleep
--- NOTE | 2019-07-03 01:17 | NUR ---
The patient ambulated to the bathroom but then right back to bed. She appears to be sleeping well.
--- NOTE | 2019-07-03 03:12 | NUR ---
The patient up to use the bathroom and was getting up for the day. When told it was only 3am she decided to lay back down
--- NOTE | 2019-07-03 04:53 | NUR ---
The patient is resting on her bed
[2019-07-03] MEDS: HYDROcodone/acetaminophen 10/325mg tab PO PRN ×2 (05:02→17:45)
--- NOTE | 2019-07-03 06:30 | NUR ---
Pt awake sitting on the side of her bed.
[2019-07-03] MEDS: atorvastatin 20mg tablet PO SCH (07:56)
[2019-07-03] MEDS: QUEtiapine 25mg tablet PO SCH ×2 (07:56→20:44)
[2019-07-03] MEDS: aspirin 81mg tab.chew PO SCH (07:56)
--- NOTE | 2019-07-03 08:30 | NUR ---
Pt is eating her breakfast.
[2019-07-03] MEDS: insulin Lispro (HumaLOG) vial - multi-dose SQ SCH ×3 (08:47→18:48)
--- NOTE | 2019-07-03 10:30 | NUR ---
Pt up ambulated to the bathroom.
--- NOTE | 2019-07-03 12:30 | NUR ---
Son has indicated that he will not be picking the pt up today.
--- NOTE | 2019-07-03 14:00 | NUR ---
Pt was escorted out onto the [facility] for some fresh air by PCT and security while this RN at lunch, okayed by community health consultant, returned from [facility].
--- NOTE | 2019-07-03 15:40 | NUR ---
Pt sitting up in a chair near her bed reading.
--- NOTE | 2019-07-03 16:56 | NUR ---
Pt being escorted up to [facility] to take a shower on the unit, accompanied by PCT and security.
--- NOTE | 2019-07-03 17:20 | NUR ---
Pt back from the shower.
--- NOTE | 2019-07-03 17:49 | NUR ---
Pt medicated for c/o 05/21 low back pain with prn [place] 10/325 mg.
[2019-07-03] MEDS ORDERED: ibuprofen tablet 400 MG TABLET PO ONE (19:00)
--- NOTE | 2019-07-03 20:00 | NUR ---
The patient has been up on the unit and pleasant and friendly with staff and peers. She is attempted to be helpful and frequently asks if there is any thing she can do. She is fairly well oriented. She is approaching peers and asking how they are doing.
[2019-07-03] MEDS: insulin glargine (Lantus) pen - multi-dose SQ SCH (20:41)
--- NOTE | 2019-07-03 21:02 | NUR ---
The patient is laying down on her bed and attempting to go to sleep for the night
--- NOTE | 2019-07-03 23:28 | NUR ---
The patient appears to be asleep
--- NOTE | 2019-07-04 00:58 | NUR ---
The patient appears to be sleeping at this time
--- NOTE | 2019-07-04 02:49 | NUR ---
The patient appears to be sleeping
--- NOTE | 2019-07-04 05:07 | NUR ---
The patient appears to have been sleeping well throughout the night
--- NOTE | 2019-07-04 06:35 | NUR ---
Patient sleeping on right side. No distress observed. Continue to monitor.
--- NOTE | 2019-07-04 07:05 | NUR ---
Patient up and crying for her daughter Claudette. Patient walking around and allowing staff to comfort her. Continue to monitor.
[2019-07-04] MEDS: atorvastatin 20mg tablet PO SCH (08:15)
[2019-07-04] MEDS: QUEtiapine 25mg tablet PO SCH ×2 (08:15→20:47)
[2019-07-04] MEDS: aspirin 81mg tab.chew PO SCH (08:15)
--- NOTE | 2019-07-04 08:55 | NUR ---
Patient laying in bed and getting up and down. Patient is more calm. Continue to monitor.
[2019-07-04] MEDS: HYDROcodone/acetaminophen 10/325mg tab PO PRN ×2 (09:30→20:50)
--- NOTE | 2019-07-04 11:10 | NUR ---
Patient sitting by bed and reading. No distress observed. Continue to monitor.
--- NOTE | 2019-07-04 13:05 | NUR ---
Patient eating lunch. No distress observed. Continue to monitor.
[2019-07-04] MEDS: insulin Lispro (HumaLOG) vial - multi-dose SQ SCH ×2 (13:53→18:55)
--- NOTE | 2019-07-04 14:02 | NUR ---
irrigation equipment mechanic Nerissa bought patient a stuffed bunny. Patient got teary eyed and was hugging and smiling with her bunny. Continue to monitor.
--- NOTE | 2019-07-04 16:05 | NUR ---
Patient sitting in her room. No distress observed. Continue to monitor.
--- NOTE | 2019-07-04 17:04 | NUR ---
Patient sitting on the edge of her bed rubbing lotion on her hands. No distress observed. Continue to monitor.
--- NOTE | 2019-07-04 17:20 | NUR ---
Patient's son brought her daughter Claudette back to see her. Patient hugging and kissing her daughter who is aphasic. Daughter Claudette smiling and crying at the same time. Continue to monitor.
[2019-07-04] MEDS: insulin glargine (Lantus) pen - multi-dose SQ SCH (20:50)
--- NOTE | 2019-07-04 20:51 | NUR ---
pt's bg was 118 at HS, so insulin wasn't given.
--- NOTE | 2019-07-04 22:03 | NUR ---
pt is sleeping on her left side, rr unlabored.
--- NOTE | 2019-07-04 23:42 | NUR ---
pt is sleeping, no s/s of distress noted. will continue to monitor
--- NOTE | 2019-07-05 01:06 | NUR ---
pt awake to use restroom, reports she feels "fine."
--- NOTE | 2019-07-05 01:58 | NUR ---
pt is sleeping now, lying on her left side, rr unlabored, no s/s of distress noted.
--- NOTE | 2019-07-05 04:27 | NUR ---
Assumed care of patient, pt. asleep at this time, laying on her left side. RR even and unlabored.
--- NOTE | 2019-07-05 05:54 | NUR ---
Pt. continues to sleep, laying on her rt. side at this time, rr even and unlabored.
--- NOTE | 2019-07-05 06:40 | NUR ---
Patient sleeping on left side. No distress observed. Continue to monitor.
[2019-07-05] MEDS: aspirin 81mg tab.chew PO SCH (08:51)
[2019-07-05] MEDS: atorvastatin 20mg tablet PO SCH (08:51)
[2019-07-05] MEDS: QUEtiapine 25mg tablet PO SCH ×2 (08:52→20:00)
[2019-07-05] MEDS: HYDROcodone/acetaminophen 10/325mg tab PO PRN (08:52)
--- NOTE | 2019-07-05 09:49 | NUR ---
PT STOOD UP FROM CHAIR AND APPEARED WEAK. I ASKED PT IF THIS IS NORMAL FOR HER, SHE STATED "NO". PT WAS ASSISTED TO BED, PT RN AWARE.
[2019-07-05] MEDS: insulin Lispro (HumaLOG) vial - multi-dose SQ SCH (14:00)
--- NOTE | 2019-07-05 19:00 | NUR ---
Pt resting comfortably, respirations normal, no s/s of distress.
--- NOTE | 2019-07-05 19:51 | NUR ---
Pt requested that pt and family in the next bed over stop talking. Reoriented pt. Will continue to monitor.
[2019-07-05] MEDS: insulin glargine (Lantus) pen - multi-dose SQ SCH (21:43)
--- NOTE | 2019-07-05 22:00 | NUR ---
Pt resting comfortably, respirations normal, no s/s of distress.
--- NOTE | 2019-07-05 23:00 | NUR ---
Pt resting comfortably, respirations normal, no s/s of distress.
--- NOTE | 2019-07-06 01:00 | NUR ---
Pt resting comfortably, respirations normal, no s/s of distress.
--- NOTE | 2019-07-06 02:41 | NUR ---
Pt resting comfortably, respirations normal, no s/s of distress.
--- NOTE | 2019-07-06 04:20 | NUR ---
Pt resting comfortably, respirations normal, no s/s of distress.
--- NOTE | 2019-07-06 06:23 | NUR ---
Pt is clean and neat with a bright affect.
--- NOTE | 2019-07-06 07:24 | NUR ---
BG is 218
[2019-07-06] MEDS: atorvastatin 20mg tablet PO SCH (08:24)
[2019-07-06] MEDS: aspirin 81mg tab.chew PO SCH (08:24)
[2019-07-06] MEDS: QUEtiapine 25mg tablet PO SCH ×2 (08:24→20:23)
--- NOTE | 2019-07-06 08:31 | NUR ---
Pt ate nearly all of her tray independently
[2019-07-06] MEDS: insulin Lispro (HumaLOG) vial - multi-dose SQ SCH ×2 (08:38→13:25)
--- NOTE | 2019-07-06 09:26 | NUR ---
Pt is resting comfortably on her left side in no apparent distress. Respirations are even and unlabored.
--- NOTE | 2019-07-06 10:01 | NUR ---
Pt talking to her neighbor about her daughter Claudette
--- NOTE | 2019-07-06 11:05 | NUR ---
pt up to the bathroom
--- NOTE | 2019-07-06 13:04 | NUR ---
Pt sitting up and eating her lunch
--- NOTE | 2019-07-06 14:24 | NUR ---
pt resting on her right back, no s/s of respiratory distress.
--- NOTE | 2019-07-06 14:53 | NUR ---
Pt asking if she can speak with a doctor to find out why she is here
--- NOTE | 2019-07-06 15:54 | NUR ---
Pt changed into clean scrubs
[2019-07-06] MEDS: HYDROcodone/acetaminophen 10/325mg tab PO PRN (15:59)
--- NOTE | 2019-07-06 17:00 | NUR ---
Pt sitting up and talking to her neighbor
--- NOTE | 2019-07-06 17:53 | NUR ---
Pt BG 76 asymptomatic
[2019-07-06] MEDS: insulin glargine (Lantus) pen - multi-dose SQ SCH (20:32)
--- NOTE | 2019-07-06 21:02 | NUR ---
Pt resting comfortably, respirations normal, no s/s of distress.
--- NOTE | 2019-07-06 22:19 | NUR ---
Pt resting comfortably, respirations normal, no s/s of distress.
--- NOTE | 2019-07-06 23:12 | NUR ---
Pt resting comfortably, respirations normal, no s/s of distress.
--- NOTE | 2019-07-07 00:03 | NUR ---
Pt resting comfortably, respirations normal, no s/s of distress.
--- NOTE | 2019-07-07 01:00 | NUR ---
Pt resting comfortably, respirations normal, no s/s of distress.
--- NOTE | 2019-07-07 02:00 | NUR ---
Pt resting comfortably, respirations normal, no s/s of distress.
--- NOTE | 2019-07-07 03:00 | NUR ---
Pt resting comfortably, respirations normal, no s/s of distress.
--- NOTE | 2019-07-07 03:52 | NUR ---
Pt resting comfortably, respirations normal, no s/s of distress.
--- NOTE | 2019-07-07 06:35 | NUR ---
Pt is asleep in no apparent distress. Respirations are even and unlabored.
--- NOTE | 2019-07-07 07:02 | NUR ---
Pt is sleeping, does not appear to be in distress.
[2019-07-07] MEDS: QUEtiapine 25mg tablet PO SCH ×2 (08:20→21:16)
[2019-07-07] MEDS: aspirin 81mg tab.chew PO SCH (08:20)
[2019-07-07] MEDS: HYDROcodone/acetaminophen 10/325mg tab PO PRN (08:21)
[2019-07-07] MEDS: atorvastatin 20mg tablet PO SCH (08:21)
--- NOTE | 2019-07-07 08:27 | NUR ---
Patient complaining of pain and given a prn norco.
[2019-07-07] MEDS: insulin Lispro (HumaLOG) vial - multi-dose SQ SCH ×2 (08:49→14:14)
--- NOTE | 2019-07-07 09:53 | NUR ---
Pt resting comfortably on left side respirations normal, no s/s of distress.
--- NOTE | 2019-07-07 11:33 | NUR ---
Patient is asleep, in no distress.
--- NOTE | 2019-07-07 11:56 | NUR ---
Pt resting comfortably on left side respirations normal, no s/s of distress.
--- NOTE | 2019-07-07 12:34 | NUR ---
Patient is laying on her left side sleeping, does not appear to be in distress.
--- NOTE | 2019-07-07 12:49 | NUR ---
Patient is up to use the restroom.
--- NOTE | 2019-07-07 12:57 | NUR ---
BG 133
--- NOTE | 2019-07-07 14:45 | NUR ---
Pt requests that no information be given to her son Jay Jay Hidalgo concerning her whereabouts.
--- NOTE | 2019-07-07 14:46 | NUR ---
Pt requests that no information be given to her son Jay Jay Hidalgo concerning her whereabouts.
--- NOTE | 2019-07-07 14:52 | NUR ---
Pt reports that she does not want her son Jay Jay visiting her.
--- NOTE | 2019-07-07 16:51 | NUR ---
Pt is still coloring
--- NOTE | 2019-07-07 17:55 | NUR ---
BG 70
--- NOTE | 2019-07-07 19:08 | NUR ---
Patient is awake and well oriented. Patient consumed her dinner. A glucose was done, in normal range. Patient denies S/I, H/I, or hallucinations. At this time she is low fowlers position in bed sleeping. No legal hold is placed.
[2019-07-07] MEDS: insulin glargine (Lantus) pen - multi-dose SQ SCH (21:13)
--- NOTE | 2019-07-07 23:53 | NUR ---
Pt sleeping, lying on her left side with no blankets on. Pt has clothing on (shirt, sweats, socks and light sweater). RR 14 and unlabored. staff within view of Pt aat.
--- NOTE | 2019-07-08 00:08 | NUR ---
pt up to br to void and drinking some water. ambulating with steady gait. pt with no needs at this time.
--- NOTE | 2019-07-08 07:00 | NUR ---
pt is up wandering around
--- NOTE | 2019-07-08 08:00 | NUR ---
pt is sitting in her chair eating breakfast
[2019-07-08] MEDS: atorvastatin 20mg tablet PO SCH (08:17)
[2019-07-08] MEDS: aspirin 81mg tab.chew PO SCH (08:17)
[2019-07-08] MEDS: QUEtiapine 25mg tablet PO SCH ×2 (08:17→20:33)
--- NOTE | 2019-07-08 09:00 | NUR ---
pt returned back to bed to take a rest after breakfast
--- NOTE | 2019-07-08 10:00 | NUR ---
PT WALKS AROUND. INTERACTS WITH STAFF. NO CONCERNS AT THIS TIME
--- NOTE | 2019-07-08 11:00 | NUR ---
PT IS SITTING IN HER CHAIR
--- NOTE | 2019-07-08 12:00 | NUR ---
NO CONCERNS AT THIS TIME
--- NOTE | 2019-07-08 13:00 | NUR ---
PT IS TALKING ABOUT HER DAUGHTER WITH STAFF. SHE BELIEVES HER DAUGHTER WAS STOLEN
--- NOTE | 2019-07-08 14:00 | NUR ---
PT IS RESTING
--- NOTE | 2019-07-08 14:07 | NUR ---
CALLED [facility], UPDATED THAT WE HAD A FACILITY THAT THE PATIENT COULD GO TO BUT PT SON AND POA DID NOT WANT PT TO GO TO THAT CERTAIN FACILITY, WAITING CROP RESEARCH SCIENTIST BACK FROM [facility] REFERRAL THAT WAS SENT OUT MONDAY, CATHERINE STATES HER DIRECTOR BERKLEY WILL MAKE A CALL TO FACILITY FOR UPDATE IF NO RESPONSE TODAY SHE WILL CALL [facility] TOMORROW FOR UPDATE, VIPIN PT PRIMARY NURSE INFORMED.
--- NOTE | 2019-07-08 15:00 | NUR ---
PT IS WALKING AROUND THE UNIT
--- NOTE | 2019-07-08 16:00 | NUR ---
PT IS TALKING WITH STAFF AND DRINKING CHAIR IN HER CHAIR
--- NOTE | 2019-07-08 17:00 | NUR ---
PT WENT UPSTAIRS TO THE OUTSIDE PATIO FOR 45 MINS
--- NOTE | 2019-07-08 18:05 | NUR ---
REPORT GIVEN TO NIGHT RN
--- NOTE | 2019-07-08 18:30 | NUR ---
Received report and assumed care of patient from LEIGHA Garces
--- NOTE | 2019-07-08 18:45 | NUR ---
The patient is sitting on the edge of her bed eating dinner.
[2019-07-08] MEDS: insulin Lispro (HumaLOG) vial - multi-dose SQ SCH (18:49)
--- NOTE | 2019-07-08 19:00 | NUR ---
The patient is up and talking to staff at nurses station.
--- NOTE | 2019-07-08 20:00 | NUR ---
The patient is lying in bed with her eyes closed. No s/s of distress.
[2019-07-08] MEDS: insulin glargine (Lantus) pen - multi-dose SQ SCH (20:40)
--- NOTE | 2019-07-08 21:00 | NUR ---
Patient is awake lying in bed. denies needs.
--- NOTE | 2019-07-08 22:00 | NUR ---
The patient is lying on her left side. She has asked for and received warm blankets. She is trying to sleep.
--- NOTE | 2019-07-08 23:33 | NUR ---
Pt sitting up at bedside to drink water and ambulating around her bed and then to br. Pt returned to her bed and now lying in the bed with blankets covering to her shouders.
--- NOTE | 2019-07-09 | NUR ---
The patient is lying in bed with covers up to her chin. Resp. unlabored. No s/s of distress.
[2019-07-09] MEDS ORDERED: diphenhydrAMINE 25mg capsule PO ONE (00:05)
--- NOTE | 2019-07-09 01:00 | NUR ---
The patient has been having a hard time getting to sleep. Order received for Benadryl 50mg
--- NOTE | 2019-07-09 02:00 | NUR ---
The patient is sleeping on her right side. Resp unlabored. No s/s of distress.
--- NOTE | 2019-07-09 03:00 | NUR ---
The patient is still sleeping on her right side. Resp unlabored. No s/s of distress.
--- NOTE | 2019-07-09 05:14 | NUR ---
The patient continues to sleep. Resp. unlabored. No s/s of distress.
--- NOTE | 2019-07-09 07:00 | NUR ---
Assumed care of patient from LEIGHA Narvaez. Pt is resting in bed peacefully at change of shift with no observed distress. Patient is pleasantly confused. Denies needs at this time. Will continue to monitor.
[2019-07-09] MEDS: atorvastatin 20mg tablet PO SCH (07:48)
[2019-07-09] MEDS: aspirin 81mg tab.chew PO SCH (07:48)
[2019-07-09] MEDS: QUEtiapine 25mg tablet PO SCH ×2 (07:48→20:29)
[2019-07-09] MEDS: insulin Lispro (HumaLOG) vial - multi-dose SQ SCH ×3 (08:57→19:09)
--- NOTE | 2019-07-09 09:00 | NUR ---
Pt is sitting at end of bed in chair coloring. She denies complaints or needs at this time. Patient is in no observed distress. Will continue to monitor.
[2019-07-09] MEDS: HYDROcodone/acetaminophen 10/325mg tab PO PRN ×2 (10:10→13:53)
--- NOTE | 2019-07-09 10:58 | NUR ---
Pt came up to nurse's station and stated "I think my emotions are catching up to me". She reports that she feels a little "sad about being here". She exhibits some delusions regarding a "budding romance" with BOB Blanco. Pt is seen ambulating intermittently on the unit and requests to organize the magazines and books. She reports that she is going "stir crazy" and is "bored". 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 She proceeds to sit at end of bed in chair and is reading a newspaper one of the security guards gave her. Will conitnue to monitor.
--- NOTE | 2019-07-09 11:50 | NUR ---
Pt seen conversing with staff and smiling. Denies needs at this time. Will continue to monitor.
--- NOTE | 2019-07-09 13:23 | NUR ---
Pt is observed eating at end of bed up in chair. Patient is exhibiting fixed delusion of needing to "pickle maker Claudette from the day program because she is out in the cold". She is redirectable with much prompting. Will continue to monitor.
[2019-07-09] MEDS ORDERED: LORazepam 0.5 MG tablet PO PRN (13:50)
[2019-07-09] MEDS ORDERED: LORazepam 1 MG tablet PO ONE (14:50)
--- NOTE | 2019-07-09 15:20 | NUR ---
Pt is seen ambulating in the unit. She is exhibiting fixed delusions of needing to get "daughter in out of the cold and off the cold porch". Pt is fixated on where she will "sleep tonight" and states that she "has some money for a motel tonight". Encouraged patient to sit down and rest as she was feeling a bit "wobbly". Pt continued to stand up at the nurse's station. Will continue to monitor.
--- NOTE | 2019-07-09 16:28 | NUR ---
Pt is laying in bed at this time. She appears to be responding to some internal stimuli, talking to someone who is not there. She requests to speak to "Medhat" to "set things straight". This request was accomodated. Pt is now resting in bed peacefully with her eye cover on. Will continue to monitor.
--- NOTE | 2019-07-09 17:58 | NUR ---
Pt is sitting in chair at end of bed. Pt is somewhat restless and seen pacing in the unit. Encouraged Pt to sit in chair and peppermint tea provided for comfort.
--- NOTE | 2019-07-09 20:00 | NUR ---
The patient has been friendly and cooperative. She is currently resting on her bed.
[2019-07-09] MEDS: insulin glargine (Lantus) pen - multi-dose SQ SCH (20:31)
--- NOTE | 2019-07-09 21:04 | NUR ---
The patient is asleep on her bed.
--- NOTE | 2019-07-09 23:11 | NUR ---
The patient appears to be asleep on her bed
--- NOTE | 2019-07-10 01:36 | NUR ---
The patient appears to be sleeping
--- NOTE | 2019-07-10 03:34 | NUR ---
The patient appears to be sleeping. She was up once to use the restroom but then right back to bed
--- NOTE | 2019-07-10 05:14 | NUR ---
The patient appears to be sleeping
--- NOTE | 2019-07-10 07:05 | NUR ---
Patient sleeping on right side. No distress observed. Continue to monitor.
--- NOTE | 2019-07-10 07:30 | NUR ---
Patient ambulatory to BR, Steady gait.
[2019-07-10] MEDS: atorvastatin 20mg tablet PO SCH (07:45)
[2019-07-10] MEDS: aspirin 81mg tab.chew PO SCH (07:45)
[2019-07-10] MEDS: QUEtiapine 25mg tablet PO SCH ×2 (07:45→19:31)
[2019-07-10] MEDS: HYDROcodone/acetaminophen 10/325mg tab PO PRN (07:46)
--- NOTE | 2019-07-10 10:01 | NUR ---
Patient sleeping on left side. No distress observed. Continue to monitor.
--- NOTE | 2019-07-10 11:50 | NUR ---
Patient up and walking around. No distress observed. Continue to monitor.
[2019-07-10] MEDS: insulin Lispro (HumaLOG) vial - multi-dose SQ SCH ×2 (13:44→19:36)
--- NOTE | 2019-07-10 13:57 | NUR ---
07/05=Referral sent to [facility]. Awaiting return call. They are a secured facility. [facility] has no female intermediate secured beds available. 08/10=call placed to [facility] daily to check with bed avail. No return call. No beds available @ [facility]. Referrals sent to Neeraj @ [facility]. Awaiting return call. Per the son, he spoke to Neeraj last week and she stated she has secured females beds.
--- NOTE | 2019-07-10 14:23 | NUR ---
Patient went to take a shower with the assistance of Vanesa Kang. Patient calm and in no distress.
--- NOTE | 2019-07-10 15:32 | NUR ---
Patient took a shower and got a makeover from [employer]. Patient's son and grandson visiting patient. Continue to monitor.
[2019-07-10] MEDS: insulin glargine (Lantus) pen - multi-dose SQ SCH (21:33)
--- NOTE | 2019-07-10 22:22 | NUR ---
PT RESTING IN BED. NO S/S OF DISTRESS OR PAIN. WILL CONTINUE TO MONITOR PT CONDITION.
--- NOTE | 2019-07-11 00:46 | NUR ---
PT RESTING IN BED ON LEFT SIDE. NO S/S OF DISTRESS OR PAIN. WILL CONTINUE TO MONITOR. PT UP ONCE TO USE THE RESTROOM, AND THEN WENT BACK TO BED.
--- NOTE | 2019-07-11 06:30 | NUR ---
Pt ambulates to BR. States she slept well. Now up making her bed.
[2019-07-11] MEDS: insulin Lispro (HumaLOG) vial - multi-dose SQ SCH ×3 (08:41→18:43)
[2019-07-11] MEDS: aspirin 81mg tab.chew PO SCH (08:42)
[2019-07-11] MEDS: atorvastatin 20mg tablet PO SCH (08:42)
[2019-07-11] MEDS: QUEtiapine 25mg tablet PO SCH ×2 (08:42→20:25)
[2019-07-11] MEDS: HYDROcodone/acetaminophen 10/325mg tab PO PRN (08:49)
--- NOTE | 2019-07-11 10:19 | NUR ---
Pt has been sitting up in a chair at the bedside. Tech has been sitting with her keeping her company. She is now looking at a magazine. ADL's completed. Pain medication given for lower back pain.
--- NOTE | 2019-07-11 12:11 | NUR ---
Pt continues to sit up in a chair at the bedside. She is calm and cooperative following directions well. Pt engages well with staff and peers.
--- NOTE | 2019-07-11 14:10 | NUR ---
Pt had a visitor; her daughter, Claudette, her son, Luiz and his . She conitnues to socialze with staff and sit in a chair by her bed.
--- NOTE | 2019-07-11 15:46 | NUR ---
Pt up at nurses station talking to staff; she would like to leave. She states she does not know why she is here and she wishes she could go home.
--- NOTE | 2019-07-11 16:38 | NUR ---
Pt drinking tea and talking to staff about going outside.
--- NOTE | 2019-07-11 18:38 | NUR ---
Assumed care of patient, pt. eating dinner at this time, appears calm and cooperative
[2019-07-11] MEDS: insulin glargine (Lantus) pen - multi-dose SQ SCH (20:24)
--- NOTE | 2019-07-11 20:30 | NUR ---
Pt. compliant with all medications and continues to present as cooperative and pleasant. She is laying with her stuffed rabbit in bed at this time, and reports content. Pt. reports she got to take a walk outside today and she enjoyed this, she continues to await placement. Pt. will occasionally make some nonsensical statements, however, pt. is able to be easily redirected by staff when needed. She received ordered Lantus at along with a snack. Will continue to monitor.
--- NOTE | 2019-07-11 22:35 | NUR ---
Pt. sleeping on her left side at this time, rr even and ulabored.
--- NOTE | 2019-07-12 00:38 | NUR ---
PT. up to use the BR, she returns to bed, resting on her back at this time.
--- NOTE | 2019-07-12 02:02 | NUR ---
PT SLEEPING PEACFULLY UNLABORED , ON HER RIGHT SIDE .
--- NOTE | 2019-07-12 02:32 | NUR ---
Pt. sleeping on her rt. side at this time, rr even and unlabored, will continue to monitor.
--- NOTE | 2019-07-12 04:32 | NUR ---
Pt. asleep on her rt. side at this time, appears to be resting comfortably.
--- NOTE | 2019-07-12 06:00 | NUR ---
Pt. asleep on her rt. side, rr even and unlabored.
--- NOTE | 2019-07-12 06:30 | NUR ---
Assumed care; pt sleeping on her right side. RR even and unlabored.
[2019-07-12] MEDS: HYDROcodone/acetaminophen 10/325mg tab PO PRN ×2 (07:05→08:12)
[2019-07-12] MEDS: atorvastatin 20mg tablet PO SCH (08:11)
[2019-07-12] MEDS: aspirin 81mg tab.chew PO SCH (08:11)
[2019-07-12] MEDS: QUEtiapine 25mg tablet PO SCH ×2 (08:11→20:53)
--- NOTE | 2019-07-12 08:30 | NUR ---
Pt sitting in chair having breakfast. BS 172.
[2019-07-12] MEDS: insulin Lispro (HumaLOG) vial - multi-dose SQ SCH ×2 (08:35→13:41)
--- NOTE | 2019-07-12 10:00 | NUR ---
Pt resting on her bed with a mask over her eyes. She appears to be sleeping. RR even and unlabored.
--- NOTE | 2019-07-12 11:10 | NUR ---
While standing next to information systems security specialistNerissa Bonnie stated, the pt looked like she was going to fall so she helped her down to the ground "so she could lay down for a few minutes, she appeared dizzy."
--- NOTE | 2019-07-12 11:15 | NUR ---
Pt denies pain. She admits to "feeling dizzy for a moment." VS WNL's. Encouraged pt to lay on her bed. Pt is now laying on her bed resting with an eye mask over her eyes.
--- NOTE | 2019-07-12 11:25 | NUR ---
CHECKED ON PT, PT REPORTS CHEST PAIN RADIATING TO HER BACK. SHES STATES "I FEEL FUNNY, THIS DOES NOT FEEL NORMAL".
--- NOTE | 2019-07-12 12:44 | NUR ---
Pt up talking to tech, Berenice, tearful at times. BS 124.
--- NOTE | 2019-07-12 14:28 | NUR ---
Paged case management regarding update on placement. Last update was 07/10/19 at 0341.
--- NOTE | 2019-07-12 14:30 | NUR ---
Pt sitting up in a chair near her bed. Occasioanlly she gets up and walks around the unit. She denies pain at this time. She continues to ask to go home. Pt reoriented to the current situation. She is a poor historian but states she understands she "I am not allowed to leave right now."
--- NOTE | 2019-07-12 16:18 | NUR ---
Pt sitting in the chair. Ambulates to the BR independently. Denies dizziness at this time.
--- NOTE | 2019-07-12 17:47 | NUR ---
Pt taken to shower by Elma Suárez.
--- NOTE | 2019-07-12 19:00 | NUR ---
Patient is awake and well oriented. Patient is without any complaint. Patient has been medication compliant. Patient has eated a full dinner. Chem bG was taken by day shift. Last glucose was 109.
[2019-07-12] MEDS: insulin glargine (Lantus) pen - multi-dose SQ SCH (20:58)
--- NOTE | 2019-07-13 00:31 | NUR ---
Patient is up to the bathroom. Gait is normal. She returns back to bed and sleep.
--- NOTE | 2019-07-13 02:24 | NUR ---
Patient is sleeping quietly. In direct view from nursing station.
--- NOTE | 2019-07-13 06:27 | NUR ---
Client sleeping on right side in no apparent distress. Respirations are even and unlabored.
[2019-07-13] MEDS: aspirin 81mg tab.chew PO SCH (08:01)
[2019-07-13] MEDS: atorvastatin 20mg tablet PO SCH (08:01)
[2019-07-13] MEDS: QUEtiapine 25mg tablet PO SCH ×2 (08:01→20:51)
[2019-07-13] MEDS: HYDROcodone/acetaminophen 10/325mg tab PO PRN ×2 (08:02→09:12)
--- NOTE | 2019-07-13 08:28 | NUR ---
Client ate 100% of her breakfast and given 5 units of insulin. Fasting BG was 90
[2019-07-13] MEDS: insulin Lispro (HumaLOG) vial - multi-dose SQ SCH ×2 (08:43→13:35)
--- NOTE | 2019-07-13 09:10 | NUR ---
primary RN was sent on a break. pt in bed on her left side resting comfortably, pain level was reassessed at a 5/10.
--- NOTE | 2019-07-13 09:29 | NUR ---
Paged for a psych eval
--- NOTE | 2019-07-13 10:25 | NUR ---
Pt up talking to other pts amicably
--- NOTE | 2019-07-13 11:44 | NUR ---
Pt reading her book
--- NOTE | 2019-07-13 13:01 | NUR ---
Client eat lunch
--- NOTE | 2019-07-13 13:01 | NUR ---
BG before lunch was 249
--- NOTE | 2019-07-13 13:40 | NUR ---
RELIEVING RN FOR LUNCH, PT IS SITTING ON CHAIR READING A BOOK
--- NOTE | 2019-07-13 14:39 | NUR ---
Pt states she is bored. She is sitting up reading
--- NOTE | 2019-07-13 15:59 | NUR ---
Client up to the bathroom
--- NOTE | 2019-07-13 17:39 | NUR ---
Pt BG 87. She is visiting amicably with son Medhat
--- NOTE | 2019-07-13 18:40 | NUR ---
Patient is awake and well oriented. She socializes with staff. There is no mental health hold on this patient. Patient is cooperative with staff. Patient consumed 75 percent of her dinner. Her pre meal Chem bG is 87. Based on this patient will recieve her nightime Lantus dose only with no correction. Patients bed is in direct view from the nursing station. She ambulates with no difficulty.
[2019-07-13] MEDS: insulin glargine (Lantus) pen - multi-dose SQ SCH (20:50)
[2019-07-13] MEDS ORDERED: temazepam 15mg capsule PO ONE (21:00)
--- NOTE | 2019-07-13 22:02 | NUR ---
Patient is sleeping quietly at this time.
--- NOTE | 2019-07-13 23:34 | NUR ---
Patient awoke, ambulated to bathroom without ataxia in her gait. Back to bed, off to sleep.
--- NOTE | 2019-07-14 01:08 | NUR ---
pt up to bathroom
--- NOTE | 2019-07-14 02:57 | NUR ---
pt in bed, under covers, respirations even
--- NOTE | 2019-07-14 03:47 | NUR ---
pt appears to be sleeping still. respirations even and unlabored
--- NOTE | 2019-07-14 05:12 | NUR ---
patient resting comfortably, cooperative with vitals. pt back to bed
--- NOTE | 2019-07-14 06:52 | NUR ---
pt is sitting in the chair reading her book, no s/s of distress.
[2019-07-14] MEDS: QUEtiapine 25mg tablet PO SCH ×2 (07:09→20:44)
[2019-07-14] MEDS: atorvastatin 20mg tablet PO SCH (07:09)
[2019-07-14] MEDS: aspirin 81mg tab.chew PO SCH (07:09)
[2019-07-14] MEDS: HYDROcodone/acetaminophen 10/325mg tab PO PRN (07:10)
[2019-07-14] MEDS: insulin Lispro (HumaLOG) vial - multi-dose SQ SCH ×3 (08:33→18:25)
--- NOTE | 2019-07-14 12:37 | NUR ---
PT SITTING IN HER CHAIR NO CHANGE IN CONDITION
--- NOTE | 2019-07-14 15:49 | NUR ---
GAVE REPORT TO HANDSEL. SHE ASSUMED CARE
--- NOTE | 2019-07-14 16:00 | NUR ---
Pt lying down on her back
--- NOTE | 2019-07-14 17:17 | NUR ---
BG 156
--- NOTE | 2019-07-14 17:52 | NUR ---
Pt sitting up and eating dinner
--- NOTE | 2019-07-14 18:30 | NUR ---
Received report and assumed care of patient from LEIGHA Bauer. The patient is sitting in a chair at bedside.
--- NOTE | 2019-07-14 20:30 | NUR ---
The patient is asleep on her right side.
[2019-07-14] MEDS: insulin glargine (Lantus) pen - multi-dose SQ SCH (21:02)
--- NOTE | 2019-07-14 21:45 | NUR ---
The patient continues to sleep on her right side.
--- NOTE | 2019-07-14 22:53 | NUR ---
Patient is asleep on her right side. Resp. unlabored. No s/s of distress.
--- NOTE | 2019-07-15 01:17 | NUR ---
The patient is up and using the bathroom.
--- NOTE | 2019-07-15 02:37 | NUR ---
The patient is sleeping on her right side. No distress noted.
[2019-07-15] MEDS: HYDROcodone/acetaminophen 10/325mg tab PO PRN ×2 (04:43→19:36)
--- NOTE | 2019-07-15 05:39 | NUR ---
The patient is sleeping on her left side. Resp. unlabored. No s/s of distress.
[2019-07-15] MEDS: atorvastatin 20mg tablet PO SCH (08:37)
[2019-07-15] MEDS: aspirin 81mg tab.chew PO SCH (08:37)
[2019-07-15] MEDS: QUEtiapine 25mg tablet PO SCH ×2 (08:38→20:35)
[2019-07-15] MEDS: insulin Lispro (HumaLOG) vial - multi-dose SQ SCH ×2 (08:39→18:51)
--- NOTE | 2019-07-15 09:39 | NUR ---
outside maintenance worker and case management paged. rn requesting update on placement
--- NOTE | 2019-07-15 10:20 | NUR ---
Patient up and ambulating around unit. Pleasant
--- NOTE | 2019-07-15 12:27 | NUR ---
Pt is seen ambulating in the unit. She requests to go to the "closet" to get a clean sweater. This process description writer accompanied patient and found a new sweater for the patient to wear. No distress observed. Pt continues to have fixed delusions that the closet belongs to her grandaughter, Tana. Pt requested coffee,v suggested she have some herbal tea instead and pt agreed. Will continue to monitor.
--- NOTE | 2019-07-15 14:32 | NUR ---
Patient calling son Medhat, whom she thinks is her ex
--- NOTE | 2019-07-15 15:44 | NUR ---
Pt is resting in bed peacefully at this time. No distress observed. Will continue to monitor.
--- NOTE | 2019-07-15 17:46 | NUR ---
Awake after nap at 1700; stated she thought it was morning and "having a hard time keeping the day and nights in order". Reassured we will assist her with am/pm and dates.
--- NOTE | 2019-07-15 18:30 | NUR ---
Received report and assumed care of patient from LEIGHA Smallwood.
--- NOTE | 2019-07-15 19:44 | NUR ---
The patient is sitting on the side of her bed enjoying a visit from friends.
[2019-07-15] MEDS: insulin glargine (Lantus) pen - multi-dose SQ SCH (20:43)
--- NOTE | 2019-07-15 21:31 | NUR ---
The patient is sitting at her bedside reading a book. Denies needs.
--- NOTE | 2019-07-16 00:43 | NUR ---
The patient is sleeping on her right side. Resp. unlabored. No s/s of distress.
--- NOTE | 2019-07-16 03:14 | NUR ---
The patient continues to sleep. No distress noted.
--- NOTE | 2019-07-16 05:56 | NUR ---
The patient is sitting in a chair at her bedside. Denies needs.
--- NOTE | 2019-07-16 06:50 | NUR ---
Pt is sitting at edge of bed. She reports some pain. PRN medication provided to patient morning BG is 95. She is pleasant and coooeprative with care. Will continue to monitor.
[2019-07-16] MEDS: aspirin 81mg tab.chew PO SCH (07:22)
[2019-07-16] MEDS: QUEtiapine 25mg tablet PO SCH ×2 (07:22→19:54)
[2019-07-16] MEDS: atorvastatin 20mg tablet PO SCH (07:22)
[2019-07-16] MEDS: HYDROcodone/acetaminophen 10/325mg tab PO PRN ×2 (07:23→19:54)
--- NOTE | 2019-07-16 08:45 | NUR ---
Pt is sitting in chair at end of bed. MNo distress observed. Pt received 6 units of humalog and ate all of her breakfast. Will continue to monitor.
[2019-07-16] MEDS: insulin Lispro (HumaLOG) vial - multi-dose SQ SCH ×3 (08:47→18:31)
--- NOTE | 2019-07-16 10:32 | NUR ---
Patient is sitting in chair at end of bed. She is currently playing [place] with the deck of cards.
--- NOTE | 2019-07-16 11:33 | NUR ---
Pt seen ambulating in the unit. She is speaking to Sruthi Krux tech and appears to believe that Sruthi is her grand daughter, Tana. Pt is re-oriented but Pt tells this lead technical writer that Sruthi "...IS Tana but for some reason wants to be called Sruthi". She reports that she does not know why she is still here. " I want to leave, I want to take my chances. I don't know what they found on my head xray". Explained results of previous CT to Pt. Pt does not appear to understand. She is redirectable. Will continue to monitor.
--- NOTE | 2019-07-16 13:30 | NUR ---
Pt is seen sitting in the chair at the end of her bed. She is talking on the phone. No distress observed. Will continue to monitor
--- NOTE | 2019-07-16 15:20 | NUR ---
Pt is seen ambulating on the unit. She reports that she is "getting her exercise". No observed distress. Will continue to monitor.
--- NOTE | 2019-07-16 17:20 | NUR ---
Pt is sitting in the chair at the end of her bed. Denies complaints at this time. Will continue to monitor.
--- NOTE | 2019-07-16 19:40 | NUR ---
The patient is sitting at the end of her bed playing cards. She is friendly and social with others. She wants to have a place to live where she can be with her daughter. She is unable to formulate a plan for [facility] if she were to leave the ER.
[2019-07-16] MEDS: insulin glargine (Lantus) pen - multi-dose SQ SCH (19:55)
--- NOTE | 2019-07-16 22:22 | NUR ---
The patient appears to be sleeping at this time.
--- NOTE | 2019-07-16 23:11 | NUR ---
The patient appears to be asleep at this time but her sleep is being disturbed by the activity on the unit.
--- NOTE | 2019-07-17 00:27 | NUR ---
The patient appears to be asleep at this time.
--- NOTE | 2019-07-17 01:55 | NUR ---
The patient appears to be sleeping
--- NOTE | 2019-07-17 04:50 | NUR ---
The patient up out of her bed and over by another agitated patient and was upset and trying to help. She did accept redirection back to her bed.
--- NOTE | 2019-07-17 06:30 | NUR ---
Pt was in bed, RN advised pt to stay within her own stall, and not to interfere with interventions at neighboring beds. Pt consented to it.
[2019-07-17] MEDS: QUEtiapine 25mg tablet PO SCH ×2 (07:10→20:53)
[2019-07-17] MEDS: aspirin 81mg tab.chew PO SCH (07:10)
[2019-07-17] MEDS: atorvastatin 20mg tablet PO SCH (07:10)
--- NOTE | 2019-07-17 07:30 | NUR ---
Pt was up, ambulated to bathroom byself, gait steady. She performed morning ADLs by self. AC Accucheck 176. Pt is given morning meal tray.
[2019-07-17] MEDS: HYDROcodone/acetaminophen 10/325mg tab PO PRN (07:46)
--- NOTE | 2019-07-17 09:00 | NUR ---
Pt sitting by self at her bed stall. She has not presented with any intrusive behaviors so far.
[2019-07-17] MEDS: insulin Lispro (HumaLOG) vial - multi-dose SQ SCH ×3 (09:05→21:15)
--- NOTE | 2019-07-17 10:30 | NUR ---
Pt sitting by her bed, no instrusive behavior noted. Pt placed a call with one of her sons to see if he will visit her tonight, the son advised that he has a [employer] meeting and might not make it tonight
--- NOTE | 2019-07-17 12:00 | NUR ---
Pt ambulated by self, gait steady. She took a nap around noon.
--- NOTE | 2019-07-17 14:00 | NUR ---
Pt had 100% lunch, paces in room afterwards. She appears to be calm and in good spirit. She advised that she will read a book.
--- NOTE | 2019-07-17 15:40 | NUR ---
PT DAILY HYGEINE AND CLOTHES DONE. PLAYING CARDS WITHOUT COMPLAINT.
--- NOTE | 2019-07-17 17:50 | NUR ---
Pt has been playing cards by self by bedside. C/O neck and lower back pain, understood that dreco is due at 1940. RN provided massage to relieve pain
--- NOTE | 2019-07-17 20:00 | NUR ---
Patients blood sugar was low at 66 and was checked late by previous shift nurse. Patient ate her dinner late and was slow at eating her meal and therefore was not covered with insulin after dinner tonight.
[2019-07-17] MEDS: insulin glargine (Lantus) pen - multi-dose SQ SCH (21:16)
[2019-07-18] MEDS: HYDROcodone/acetaminophen 10/325mg tab PO PRN ×2 (05:19→17:26)
[2019-07-18] MEDS: insulin Lispro (HumaLOG) vial - multi-dose SQ SCH ×2 (08:41→13:41)
[2019-07-18] MEDS: QUEtiapine 25mg tablet PO SCH ×2 (08:41→21:28)
[2019-07-18] MEDS: aspirin 81mg tab.chew PO SCH (08:42)
[2019-07-18] MEDS: atorvastatin 20mg tablet PO SCH (08:42)
--- NOTE | 2019-07-18 12:09 | NUR ---
Patient sitting in chair and reading. No distress observed. Continue to monitor.
--- NOTE | 2019-07-18 18:10 | NUR ---
Repeat BS 81.
[2019-07-18] MEDS ORDERED: temazepam 15mg capsule PO ONE (21:00)
[2019-07-18] MEDS: insulin glargine (Lantus) pen - multi-dose SQ SCH (21:27)
--- NOTE | 2019-07-18 22:09 | NUR ---
Care was assumed from LEIGHA Dee. Patient is well oriented and cooperative. She is medication compliant. Patient ate her full dinner. NOC Lantus was done with no other correction dose. Patient was given Restoril as a sleeping RX. Patient went to bed and is sleeping quietly in mid fowlers position.
--- NOTE | 2019-07-19 02:57 | NUR ---
Patient is sleeping, no distress. In view from the nursing station.
--- NOTE | 2019-07-19 05:18 | NUR ---
Patient continues to sleep quietly.
--- NOTE | 2019-07-19 07:00 | NUR ---
Received pt up and making up her bed and using the bathroom. Pt pleasant upon approach.
[2019-07-19] MEDS: QUEtiapine 25mg tablet PO SCH ×2 (08:18→22:54)
[2019-07-19] MEDS: aspirin 81mg tab.chew PO SCH (08:18)
[2019-07-19] MEDS: atorvastatin 20mg tablet PO SCH (08:18)
[2019-07-19] MEDS: insulin Lispro (HumaLOG) vial - multi-dose SQ SCH ×2 (08:34→13:41)
--- NOTE | 2019-07-19 09:00 | NUR ---
Pt ate all of breakfast and interacting appropriately with staff.
--- NOTE | 2019-07-19 11:27 | NUR ---
Sitting in chair, calm/cooperative.
--- NOTE | 2019-07-19 13:00 | NUR ---
Pt sitting in chair by bed, visiting appropriately with staff.
--- NOTE | 2019-07-19 15:00 | NUR ---
Pt up for lunch and was interacting appropriately with staff and peers. Currently sitting up in chair at bedside without complaints.
[2019-07-19] MEDS: HYDROcodone/acetaminophen 10/325mg tab PO PRN (16:49)
--- NOTE | 2019-07-19 17:00 | NUR ---
Pt awake sitting in chair at bedside. Pt did c/o lower back pain and was given norco.
--- NOTE | 2019-07-19 19:21 | NUR ---
Patient is awake and well oriented. She denies any distress. Patient ambulates without problem. AM Chem Bg was 112, PM Glucose was 65. Carbs were 55. Discussion with DYAN Shannon, nutritional dose Insulin will be held tonight. Patient tells this senior writer that she has been sleeping very well with the Restoril Rx. Patient denies any additional needs. She has been medication compliant. No dementia noted.
[2019-07-19] MEDS: temazepam 15mg capsule PO SCH (22:55)
[2019-07-19] MEDS: insulin glargine (Lantus) pen - multi-dose SQ SCH (23:01)
--- NOTE | 2019-07-19 23:36 | NUR ---
Patient up to bathroom and then back to bed. Gait is normal.
--- NOTE | 2019-07-20 00:07 | NUR ---
relieving RN for lunch, pt is sleeping, resp even and unlabored
--- NOTE | 2019-07-20 06:51 | NUR ---
BG 113
[2019-07-20 07:07] LABS: CLARITY,URINE CLEAR (Clear); COLOR,URINE STRAW (Yellow); GLUCOSE, URINE NEGATIVE (Neg); KETONES,URINE NEGATIVE (Neg); LEUKOCYTE ESTERASE ,URINE NEGATIVE (Neg); NITRITES, URINE NEGATIVE (Neg); OCCULT BLOOD,URINE NEGATIVE (Neg); PROTEIN,URINE NEGATIVE (Neg); UROBILINOGEN,URINE 0.2 E.U/dL (0.2-1.0)
[2019-07-20 07:08] LABS: UA COLLECTION TYPE CLN CATCH MIDSTREAM
[2019-07-20 07:08] LABS: BASOPHILS # (AUTO) 0.1 X10'3 (0-0.2); BASOPHILS % (AUTO) 0.9 % (0-1); EOSINOPHILS # (AUTO) 0.3 X10'3 (0-0.9); EOSINOPHILS % (AUTO) 4.9 % (0-6); HEMOGLOBIN 12.7 g/dl (12.0-16.0); LYMPHOCYTES # (AUTO) 1.6 X10'3 (1.1-4.8); LYMPHOCYTES % (AUTO) 23.3 % (21-51); MEAN CORPUSCULAR HGB CONC 33.5 g/dL (33.0-36.5); MEAN CORPUSCULAR VOLUME 89.5 FL (78-98); MEAN PLATELET VOLUME 10.1 FL (7.4-10.4); MONOCYTES # (AUTO) 0.6 X10'3 (0-0.9); MONOCYTES % (AUTO) 8.1 % (2-12); NEUTROPHILS # (AUTO) 4.3 X10'3 (1.8-7.7); NEUTROPHILS % (AUTO) 62.8 % (42-75); PLATELET COUNT 177 X10'3 (140-440); RED BLOOD COUNT 4.25 X10'6 (4.20-5.60); RED CELL DISTRIBUTION WIDTH 12.6 % (11.5-14.5); WHITE BLOOD COUNT 6.9 X10'3 (4.5-11.0)
--- NOTE | 2019-07-20 07:29 | NUR ---
PT IS REQUESTING TO HAVE A FEMALE NURSE TO TAKE CARE OF HER INSTEAD OPF A MALE NURSE PT IS ALSO SAYING SHE FEELS FOGGY MAYBE FROM THE SLEEPING PILL
[2019-07-20 07:31] LABS: ALANINE AMINOTRANSFERASE 51 U/L (12-78); ALBUMIN 3.7 G/DL (3.4-5.0); ALBUMIN/GLOBULIN RATIO 0.8 (1.1-1.5); ALKALINE PHOSPHATASE 104 IU/L (46-116); ANION GAP 9 (8-16); ASPARTATE AMINO TRANSFERASE 38 U/L (10-37); BILIRUBIN,TOTAL 0.3 MG/DL (0.1-1.0); BLOOD UREA NITROGEN 21 MG/DL (7-18); BUN/CREATININE RATIO 24.1 (6.6-38.0); CALCIUM 9.7 MG/DL (8.5-10.1); CHLORIDE 103 MMOL/L (99-107); CREATININE 0.87 MG/DL (0.40-0.90); GLUCOSE 125 MG/DL (70-104); SODIUM 139 MMOL/L (135-145); TOTAL CARBON DIOXIDE 27.2 MMOL/L (24-32); TOTAL PROTEIN 8.2 G/DL (6.4-8.2); eGFR 63 ML/MIN
[2019-07-20 07:32] LABS: POTASSIUM 3.9 MMOL/L (3.5-5.1)
[2019-07-20] MEDS: aspirin 81mg tab.chew PO SCH (07:37)
[2019-07-20] MEDS: atorvastatin 20mg tablet PO SCH (07:37)
[2019-07-20] MEDS: HYDROcodone/acetaminophen 10/325mg tab PO PRN (07:38)
[2019-07-20] MEDS: QUEtiapine 25mg tablet PO SCH ×2 (07:38→20:00)
--- NOTE | 2019-07-20 08:19 | NUR ---
Client sitting up and eating breakfast
[2019-07-20] MEDS: insulin Lispro (HumaLOG) vial - multi-dose SQ SCH ×3 (08:57→19:19)
--- NOTE | 2019-07-20 10:13 | NUR ---
pt is now sleeping gave pt warm blankets and gave eye mask pt sleeping on back
--- NOTE | 2019-07-20 11:19 | NUR ---
Client asleep on her back in no apparent distress. Respirations are even and unlabored.
--- NOTE | 2019-07-20 12:28 | NUR ---
Spoke with Last ZAIDI. He is declining psych eval as inappropriate.
--- NOTE | 2019-07-20 13:09 | NUR ---
PRIMARY RN WAS SENT ON LUNCH BREAK, MONITORING PT'S
--- NOTE | 2019-07-20 13:10 | NUR ---
PT BLOOD GLUCOSE 191
--- NOTE | 2019-07-20 14:09 | NUR ---
Pt watching movie with Capptain
--- NOTE | 2019-07-20 16:01 | NUR ---
Pt up to the bathroom ambulating with a steady gait
--- NOTE | 2019-07-20 17:32 | NUR ---
BG 78 asymptomatic
--- NOTE | 2019-07-20 18:30 | NUR ---
This patient is awake and well oriented. She ambulates without problem. Patient ate 100 percent of her dinner, 50 carbs. Patient denies any complaints. Her bed is in direct view from the nursing station.
--- NOTE | 2019-07-20 20:25 | NUR ---
Patient is being interviewed by Last Amaro at bedside.
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
[2019-07-20] MEDS: temazepam 15mg capsule PO SCH (21:00)
[2019-07-20] MEDS: insulin glargine (Lantus) pen - multi-dose SQ SCH (21:17)
[2019-07-21] MEDS: HYDROcodone/acetaminophen 10/325mg tab PO PRN ×2 (01:47→09:09)
--- NOTE | 2019-07-21 01:48 | NUR ---
Patient awoke and ambulated to bathroom to void. Patient upon return from restroom states she is experiencing acute bilateral groin pain. Patient states this the pain she always has in the middle of the night. Patient rates pain a 10 on a scale of 0-10. [place] 10 is administered to patient based on [facility] protocol. Patient returns to bed.
--- NOTE | 2019-07-21 05:02 | NUR ---
Patient is awake, organizing bedding and nearby space.
--- NOTE | 2019-07-21 06:47 | NUR ---
Pt BG 102
[2019-07-21] MEDS: QUEtiapine 25mg tablet PO SCH ×2 (07:17→20:50)
[2019-07-21] MEDS: aspirin 81mg tab.chew PO SCH (07:18)
[2019-07-21] MEDS: atorvastatin 20mg tablet PO SCH (07:18)
--- NOTE | 2019-07-21 07:40 | NUR ---
Pt playing cards at her bedside
[2019-07-21] MEDS: insulin Lispro (HumaLOG) vial - multi-dose SQ SCH ×2 (08:21→13:28)
--- NOTE | 2019-07-21 08:30 | NUR ---
TELE NEURO CONSULT IS COMPLETE. PT ANSWERED ALL QUESTIONS APPROPRIATELY WITH THE EXCEPTION OF HER AGE.
--- NOTE | 2019-07-21 09:11 | NUR ---
Pt complaining of pain in groin area 05/21. [place] given
--- NOTE | 2019-07-21 09:31 | NUR ---
breaking primary RN, pt req milk for her coffee, obtained for her, she is calm
--- NOTE | 2019-07-21 09:57 | NUR ---
Pt up at RN station talking to staff appropriately.
--- NOTE | 2019-07-21 11:11 | NUR ---
Pt sitting at bedside whistling to self.
--- NOTE | 2019-07-21 11:59 | NUR ---
Keerthi Walters RN, pt is standing at the head end of her bed, her son was just here with her daughter, but he refused to talk to the physician or the staff
--- NOTE | 2019-07-21 12:00 | NUR ---
Pt son Blake here visiting with daughter of pt Claudette. Dr Hanna attempted to speak with son. Son Blaek became visibly upset and left promptly when asked if he could take April home. April states she does not want to live with blake because his adopted her daughter Claudette and she is angry about it.
--- NOTE | 2019-07-21 12:41 | NUR ---
Pt states she has her own home at [address] [facility]
--- NOTE | 2019-07-21 12:59 | NUR ---
BG 181
--- NOTE | 2019-07-21 13:12 | NUR ---
Breaking primary RN. pt is sitting in a chair at bedside, eating her lunch, sad about daughter and son leaving
--- NOTE | 2019-07-21 13:56 | NUR ---
Pt is sitting up and reading a book
--- NOTE | 2019-07-21 14:36 | NUR ---
Pt showered upstairs at [facility] and changed into clean clothes
--- NOTE | 2019-07-21 14:45 | NUR ---
Pt calling son Medhat
--- NOTE | 2019-07-21 17:14 | NUR ---
PT STATES SHE IS TIRED AND IS GOING TO REST. PT LAYING IN BED, NO S/S OF DISTRESS.
--- NOTE | 2019-07-21 17:24 | NUR ---
Pt BG 108
--- NOTE | 2019-07-21 18:30 | NUR ---
Received report and assumed care of patient from LEIGHA Cameron.
--- NOTE | 2019-07-21 20:30 | NUR ---
Patient is napping on her right side. No s/s of distress.
[2019-07-21] MEDS: temazepam 15mg capsule PO SCH (20:50)
[2019-07-21] MEDS: insulin glargine (Lantus) pen - multi-dose SQ SCH (21:09)
--- NOTE | 2019-07-21 21:24 | NUR ---
pt given evening meds. Requesting mouthwash and given this. Pt requesting coffee and updated that it is too late. Pt asked if it is 3 in the afternoon and told it is 9 pm. Pt back to her chair near bed and now playing cards.
--- NOTE | 2019-07-21 21:40 | NUR ---
The patient is sitting in a chair on the side of her bed playing cards.
--- NOTE | 2019-07-22 01:12 | NUR ---
The patient is awake and up to the bathroom. Denies needs.
--- NOTE | 2019-07-22 03:09 | NUR ---
PT LYING ON THE BED ON HER BACK WITH BLANKET COVERING TO HER CHEST. APPEARS TO BE SLEEPING. RR 16 AND UNLABORED. SITTER AND RN IN VIEW OF PT AAT.
--- NOTE | 2019-07-22 04:08 | NUR ---
The patient is asleep on her right side. Resp unlabored. No s/s of distress.
[2019-07-22] MEDS: HYDROcodone/acetaminophen 10/325mg tab PO PRN ×2 (06:02→22:01)
--- NOTE | 2019-07-22 06:40 | NUR ---
Patient sitting in bed. Patient did not sleep well last night. Continue to monitor.
--- NOTE | 2019-07-22 08:15 | NUR ---
Patient eating breakfast. No distress observed. Continue to monitor.
[2019-07-22] MEDS: atorvastatin 20mg tablet PO SCH (09:04)
[2019-07-22] MEDS: QUEtiapine 25mg tablet PO SCH ×2 (09:04→20:48)
[2019-07-22] MEDS: aspirin 81mg tab.chew PO SCH (09:04)
[2019-07-22] MEDS: insulin Lispro (HumaLOG) vial - multi-dose SQ SCH ×3 (09:08→20:54)
--- NOTE | 2019-07-22 10:25 | NUR ---
Patient sitting in chair. No distress observed. Continue to monitor.
--- NOTE | 2019-07-22 12:20 | NUR ---
Patient's son Medhat sitting and speaking to patient. Medhat tell patient he has to decide if he is going to take her back or not. If he does she will have to follow the rules. Voices were being raised. LEIGHA Sneed went to Kassidy's office to ask if Medhat knows about the possible transfer to [facility]. Kassidy said yes and went and spoke to Medhat and April. April became very deprssed after Medhat left and wanted to call him and ask him to call Blake to bring Claudette. When April got on the phone April told him she wanted to end her life because she wasn't going to be able to see Claudette anymore. Patient tearful and upset. Continue to monitor.
--- NOTE | 2019-07-22 13:12 | NUR ---
BLOOD SUGARS CHECKED PRIOR TO BEING GIVEN LUNCH TRAY AT 176. PT ATE LUNCH AND AMB TO BATHROOM.
--- NOTE | 2019-07-22 13:17 | NUR ---
PT IS TAKEN UPSTAIRS FOR A WALK AND TO GO OUTSIDE ON THE PATIO. PT TAKEN UP BY THE Flaviar. SECURITY ACCOMPANIES THEM.
--- NOTE | 2019-07-22 16:00 | NUR ---
RN spoke to Dr Lam about April saying she wants to . stated he would go evaluate her. Continue to monitor.
--- NOTE | 2019-07-22 16:23 | NUR ---
REGULO HERNANDEZ (BROTHER) [phone]
--- NOTE | 2019-07-22 17:15 | NUR ---
Dr Ivey evaluating patient and sat and talked with her for a long time. Patient talkative. Continue to monitor.
--- NOTE | 2019-07-22 19:00 | NUR ---
RCD PT AWAKE SITTING WITH VISITORS AT THE BEDSIDE.
--- NOTE | 2019-07-22 20:10 | NUR ---
PER PT SHE IS WAITING FOR THE DOCTOR TO HAVE DINNER WITH HER.
[2019-07-22] MEDS: temazepam 15mg capsule PO SCH (20:47)
[2019-07-22] MEDS: insulin glargine (Lantus) pen - multi-dose SQ SCH (20:51)
--- NOTE | 2019-07-22 21:10 | NUR ---
MEDS GIVEN AND NEEDS ATTENDED.
--- NOTE | 2019-07-22 22:31 | NUR ---
PT ASLEEP IN BED,BREATHING EVEN AND UNLABOURED.
--- NOTE | 2019-07-22 23:40 | NUR ---
ASLEEP IN BED,BREATHING EVEN AND UNLABOURED.
--- NOTE | 2019-07-23 00:39 | NUR ---
PT SLEEPING COMFORTABLY,BREATHING EVEN AND UNLABOURED.
--- NOTE | 2019-07-23 01:28 | NUR ---
PT SLEEPING,BREATHING EVEN AND UNLABOURED.
--- NOTE | 2019-07-23 03:23 | NUR ---
PT UP TO THE BATHROOM AND BACK TO BED.
--- NOTE | 2019-07-23 05:34 | NUR ---
v/s checked and went back to sleep.
--- NOTE | 2019-07-23 06:00 | NUR ---
Patient awake and sitting in a chair by her side table. Patient calm. No distress observed. Continue to monitor.
[2019-07-23] MEDS: HYDROcodone/acetaminophen 10/325mg tab PO PRN ×3 (06:10→19:25)
--- NOTE | 2019-07-23 06:50 | NUR ---
Director Kassidy walked the patient to the cafeteria to buy patient breakfast. Patient all smiles when she left. Continue to monitor.
--- NOTE | 2019-07-23 07:20 | NUR ---
Patient wheeled back in w/c by Kassidy with a fresh breakfast. Patient very happy she got fresh fruit and yogurt. Continue to monitor.
[2019-07-23] MEDS: atorvastatin 20mg tablet PO SCH (08:40)
[2019-07-23] MEDS: QUEtiapine 25mg tablet PO SCH ×2 (08:40→19:25)
[2019-07-23] MEDS: aspirin 81mg tab.chew PO SCH (08:40)
--- NOTE | 2019-07-23 09:17 | NUR ---
Patient sitting in her chair comes up to the nurses station often. No distress observed. Continue to monitor.
--- NOTE | 2019-07-23 11:15 | NUR ---
Patient complaining about being here for a month and a half (3 weeks actually). Patient c/o not knowing what is going on. RN has told her the plan. Patient doesn't remember. RN explained again to patient her status. Continue to monitor.
--- NOTE | 2019-07-23 12:20 | NUR ---
Patient walking and slowly turned and went to the ground. No injury observed. Continue to monitor.
[2019-07-23] MEDS: insulin Lispro (HumaLOG) vial - multi-dose SQ SCH ×2 (13:31→18:55)
--- NOTE | 2019-07-23 14:26 | NUR ---
Patient is happier and sitting in her chair. Continue to monitor.
--- NOTE | 2019-07-23 17:15 | NUR ---
Patient playing Solitaire and sitting at her bedside table. No distress observed. Continue to monitor.
--- NOTE | 2019-07-23 19:19 | NUR ---
found an unwrapped [place] pill by nursing computer. it was determined to have been supposed to be administered on day shift. day shift nurse had already left, but was notified via phone and will take care of documentation tomorrow. I wasted medication with Mary Lou AHUJA since med was unwrapped. pt states she knows she does not get it and is in 8/10 pain in her back
[2019-07-23] MEDS: temazepam 15mg capsule PO SCH (21:10)
[2019-07-23] MEDS: insulin glargine (Lantus) pen - multi-dose SQ SCH (21:12)
--- NOTE | 2019-07-23 21:32 | NUR ---
pt has been cooperative with nighttime meds. visited with son and DIL after dinner. pt is resting quietly on her rt side, resp even/unlabored.
--- NOTE | 2019-07-23 23:10 | NUR ---
pt continues sleeping. resp even/unlabored
--- NOTE | 2019-07-24 00:56 | NUR ---
pt has remained asleep. resp even/unlabored
--- NOTE | 2019-07-24 01:12 | NUR ---
pt up to use restroom independently. returned to resting in bed
--- NOTE | 2019-07-24 02:24 | NUR ---
pt sleeping. resp even/unlabored
--- NOTE | 2019-07-24 04:16 | NUR ---
pt up to restroom independently. returned to resting in bed
--- NOTE | 2019-07-24 05:57 | NUR ---
pt seems to have slept well and in a good mood this morning. up to the bathroom. VS obtained
--- NOTE | 2019-07-24 07:21 | NUR ---
ASSUMED CARE OF THIS PT. SHE IS SITTING IN CHAIR AT END OF HER BED, READING. NO DISTRESS OBSERVED. WILL CONTINUE TO MONITOR.
[2019-07-24] MEDS: HYDROcodone/acetaminophen 10/325mg tab PO PRN ×2 (07:39→19:07)
[2019-07-24] MEDS: aspirin 81mg tab.chew PO SCH (07:39)
[2019-07-24] MEDS: QUEtiapine 25mg tablet PO SCH ×2 (07:39→19:37)
[2019-07-24] MEDS: atorvastatin 20mg tablet PO SCH (07:40)
--- NOTE | 2019-07-24 09:02 | NUR ---
PT'S MORNING BG WAS 142. PT ATE ALL OF HER BREAKFAST.
[2019-07-24] MEDS: insulin Lispro (HumaLOG) vial - multi-dose SQ SCH ×3 (09:10→18:33)
--- NOTE | 2019-07-24 10:27 | NUR ---
Pt is resting in bed on the left side peacefully. no observed distress, will continue to monitor
--- NOTE | 2019-07-24 12:46 | NUR ---
Pt is sitting in chair at end of bed eating lunch. Her BG was 243. No distress observed.
--- NOTE | 2019-07-24 13:40 | NUR ---
pt visiting with security
--- NOTE | 2019-07-24 14:20 | NUR ---
Pt is sitting in chair at end of bed. No distress observed.
--- NOTE | 2019-07-24 15:30 | NUR ---
Pt is sitting at end of bed in chair. She reports that she is "working on a project". She denies needs at this time
--- NOTE | 2019-07-24 17:30 | NUR ---
Pt is eating her dinner in chair at the end of the bed. No distress observed.
--- NOTE | 2019-07-24 20:00 | NUR ---
The patient is up and sitting in her chair. She is waiting for placement but no clear plan has been made for her that was reported. She is taking care of her ADLs independently. She is missing her daughter and her dog. She has mild confusion. She is friendly and social with peers and staff. She is reporting that she is having severe lower back pain and discussed patient's pain level with Dr. Harris and orders received.
[2019-07-24] MEDS: HYDROcodone/acetaminophen 10/325mg tab PO SCH (20:47)
[2019-07-24] MEDS: temazepam 15mg capsule PO SCH (20:47)
[2019-07-24] MEDS: insulin glargine (Lantus) pen - multi-dose SQ SCH (20:47)
--- NOTE | 2019-07-24 21:56 | NUR ---
The patient currently appears to be sleeping.
--- NOTE | 2019-07-24 23:48 | NUR ---
The patient appears to be sleeping
--- NOTE | 2019-07-25 04:52 | NUR ---
The patient has appeared to have slept well throughout the night. She was up twice to briefly use the restroom but then right back to bed.
[2019-07-25] MEDS: HYDROcodone/acetaminophen 10/325mg tab PO SCH ×3 (05:29→20:56)
--- NOTE | 2019-07-25 05:48 | NUR ---
The patient up to the nursing station in a bent over position and holding her back. Complain of severe lower back pain. Dr. Woods made aware and order received to give 8am dose of norco now. Patient describing shooting pains. Warm blanket applied to her low back and she is resting on her bed.
--- NOTE | 2019-07-25 06:30 | NUR ---
RN received report on pt. Pt. sleeping. Normal rate and rhythm of respirations noted.
--- NOTE | 2019-07-25 08:00 | NUR ---
Pt. awake and eating breakfast at bedside. Pt.'s CBG was 112. Pt. given 8 units humolog for level 3 protocol with carb intake of 60G.
[2019-07-25] MEDS: insulin Lispro (HumaLOG) vial - multi-dose SQ SCH ×4 (08:53→20:55)
[2019-07-25] MEDS: QUEtiapine 25mg tablet PO SCH ×2 (08:56→20:55)
[2019-07-25] MEDS: atorvastatin 20mg tablet PO SCH (08:59)
[2019-07-25] MEDS: aspirin 81mg tab.chew PO SCH (08:59)
--- NOTE | 2019-07-25 10:00 | NUR ---
Pt. sitting next to bed playing cards. pt. calm and cooperative. Pt. thought she was at [facility], RN able to reorient pt. Pt. requested phone to call her son and spoke with him.
--- NOTE | 2019-07-25 12:00 | NUR ---
Pt. awake at bedside. CBG 152. Pt. calm and cooperative.
--- NOTE | 2019-07-25 14:00 | NUR ---
Pt. awake and socializing appropriately with other pt.'s and staff.
--- NOTE | 2019-07-25 18:00 | NUR ---
Pt.'s CBG was 325, however, pt. ate chips and sandwhich prior to CBG test. Pt. awake at bedside chair reading book. Pt. pleasant and talks about how she enjoys keeping a neat home and that she misses her home.
--- NOTE | 2019-07-25 18:30 | NUR ---
PT is sitting up in her chair smiling on shift change. PT is cooperative with 1;1 assessment. She denies SI/HI. She also denies AH/VH at this time.
--- NOTE | 2019-07-25 20:30 | NUR ---
PT's HS accucheck is 161. PT given her scheduled dose of Lantus 14 units plus a correctional dose of Humalog 3 units. PT remains at a level 4. Pt is medication compliant.
[2019-07-25] MEDS: insulin glargine (Lantus) pen - multi-dose SQ SCH (20:48)
[2019-07-25] MEDS: temazepam 15mg capsule PO SCH (20:56)
--- NOTE | 2019-07-25 22:00 | NUR ---
Pt is sleeping on L side, RR WNL, no signs or symptoms of distress at this time.
--- NOTE | 2019-07-26 00:11 | NUR ---
relieving RN for lunch, pt is sleeping quietly on bed, resp even and unlabored
--- NOTE | 2019-07-26 02:00 | NUR ---
PT asleep on her back. RR WNL, no distress noted.
--- NOTE | 2019-07-26 03:48 | NUR ---
PT got up and used the restroom. She then returns to bed and falls back asleep.
--- NOTE | 2019-07-26 05:51 | NUR ---
Pt is awake, brushes hair and uses restroom. She requests her [place], but it is not scheduled until 0800. Pt educated on her medication schedule and is assured that she will get it this morning. Pt encouraged to lay back down to try to rest. Pt becomes agitated and approaches the other nurse to try to recieve the 0800 norco. Pt was encouraged to wait, and try a heating pad, which she agreed to.
--- NOTE | 2019-07-26 06:50 | NUR ---
Pt up early this morning wanting her pain pill, upset that she has to wait until 0700 for it to be given. pt irritable stated she did not wish to speak to anyone or answer any more questions until she got her pain medicine.
[2019-07-26] MEDS: HYDROcodone/acetaminophen 10/325mg tab PO SCH ×4 (07:09→22:04)
--- NOTE | 2019-07-26 07:09 | NUR ---
Pt given her morning meds including routine [place] 10/325 mg, pt appreciative, pleasant and polite. Pt has a paper calendar in front of her by wish she keeps track of the date. [facility]
[2019-07-26] MEDS: QUEtiapine 25mg tablet PO SCH ×2 (07:10→21:21)
[2019-07-26] MEDS: atorvastatin 20mg tablet PO SCH (07:10)
[2019-07-26] MEDS: aspirin 81mg tab.chew PO SCH (07:10)
--- NOTE | 2019-07-26 08:00 | NUR ---
Pt ambulated to the bathroom.
[2019-07-26] MEDS: insulin Lispro (HumaLOG) vial - multi-dose SQ SCH ×3 (08:47→21:27)
--- NOTE | 2019-07-26 10:00 | NUR ---
Pt was taken upstairs to shower accompanied by PCT, currently sitting in her chair at bedside, clean and dressed.
--- NOTE | 2019-07-26 11:10 | NUR ---
ER Overflow director looking into getting a hospital bed for pt to help alleviate c/o back pain.
--- NOTE | 2019-07-26 13:14 | NUR ---
Pt now has a regular hospital bed.
--- NOTE | 2019-07-26 14:20 | NUR ---
Pt sitting up in her chair after lunch.
--- NOTE | 2019-07-26 15:21 | NUR ---
Son and grandson are here visiting. Son is talking about the possibility of trying to have a discussion with the patient about discharging home with him. ER overflow director aware.
--- NOTE | 2019-07-26 15:32 | NUR ---
Contacted DINA Spear, she will come to speak with pt's son re: possibility of discharge home with him.
--- NOTE | 2019-07-26 15:48 | NUR ---
Beatris ARROYO met with son and he is tentatively planning on taking the pt home with him on Monday. Son is asking for help with IHSS application status and wants to be sure that she gets prescriptions and appointment with PCP set up prior to discharge.
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
--- NOTE | 2019-07-26 16:11 | NUR ---
pt requested to use the phone, primary RN advised pt to wait 15 minutes which pt agreed to. primary RN was sent on a break period.
--- NOTE | 2019-07-26 16:28 | NUR ---
Pt requested to call her son, overheard pt stating that she had calmed down and that, "maybe it would be the best thing for us to get back together." Pt has agreed to discuss it further with her son on Monday.
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
--- NOTE | 2019-07-26 19:00 | NUR ---
Patient is awake, well oriented, she is ambulatory. Patient is able to get up and dress self. She self toilets. Patient relaxes and socializes.
--- NOTE | 2019-07-26 21:00 | NUR ---
Patient is relaxing, mid fowlers in bed. No distress.
[2019-07-26] MEDS: temazepam 15mg capsule PO SCH ×2 (21:21→22:04)
[2019-07-26] MEDS: insulin glargine (Lantus) pen - multi-dose SQ SCH (21:24)
[2019-07-26] MEDS ORDERED: QUEtiapine 25mg tablet PO ONE (21:50)
--- NOTE | 2019-07-27 03:25 | NUR ---
Patient sleeping quietly, low fowlers position in bed.
--- NOTE | 2019-07-27 04:15 | NUR ---
Patient up to bathroom with assist. Mildly ataxic gait. Patient complains of groin/pelvic pain which she has every am. Patient returnes to sleep.
--- NOTE | 2019-07-27 06:35 | NUR ---
Patient sleeping supine. No distress observed. Continue to monitor.
[2019-07-27] MEDS: aspirin 81mg tab.chew PO SCH (08:30)
[2019-07-27] MEDS: QUEtiapine 25mg tablet PO SCH ×2 (08:30→20:05)
[2019-07-27] MEDS: atorvastatin 20mg tablet PO SCH (08:31)
[2019-07-27] MEDS: HYDROcodone/acetaminophen 10/325mg tab PO SCH ×3 (08:31→21:39)
--- NOTE | 2019-07-27 08:32 | NUR ---
Patient ambulatory to BR. Patient appears slow and sluggish. Continue to monitor.
[2019-07-27] MEDS: insulin Lispro (HumaLOG) vial - multi-dose SQ SCH ×2 (09:03→21:38)
--- NOTE | 2019-07-27 09:55 | NUR ---
Patient sleeping on right side. No distress observed. Continue to monitor.
--- NOTE | 2019-07-27 12:05 | NUR ---
Patient sleeping supine. No distress observed. Continue to monitor.
--- NOTE | 2019-07-27 13:35 | NUR ---
RN spoke to Dr Woods about patient. Patient does not usually sleep all day. RN found patient had an extra dose of 50 mg Seroquel last night and [place] 10/325 mg was increased from BID to TID. Dr Woods believes the extra dose of Seroquel probably cause the extra sleep. Continue to monitor.
--- NOTE | 2019-07-27 13:45 | NUR ---
Patient is up and eating and looking better. Continue to monitor.
--- NOTE | 2019-07-27 14:20 | NUR ---
Patient smiling and chatting with her neighbor. Continue to monitor.
--- NOTE | 2019-07-27 16:24 | NUR ---
Patient sitting at her chair, awake, alert and in no distress. Continue to monitor.
--- NOTE | 2019-07-27 18:57 | NUR ---
This patients blood sugar this am was 59. Edith blood sugar prior to dinner was 282. Due to patients hypoglycemia this am Dr. Nash would like the nutrtitional dose will be held. Patients correctional dose will be given.
--- NOTE | 2019-07-27 19:15 | NUR ---
This patient is awake and well oriented. She talks to staff and socializes well. Patient denies pain or any other problems. Patient denies S/I, H/I, or any hallucinations. This patient is not on any type of hold. She is awating placement or discharge, hopefully sooner than later.
--- NOTE | 2019-07-27 19:45 | NUR ---
Per Doctor Saad nutritional dose insulin was held. Will evaluate blood sugar in am.
--- NOTE | 2019-07-27 20:11 | NUR ---
Patient is resting low fowlers position in bed. Patient took her evening Seroquel, patient is medication compliant.
[2019-07-27] MEDS: insulin glargine (Lantus) pen - multi-dose SQ SCH (21:36)
[2019-07-27] MEDS: Melatonin 3mg tablet PO SCH (21:38)
--- NOTE | 2019-07-27 23:16 | NUR ---
Patient up to bathroom, she then returns to bed then to sleep.
--- NOTE | 2019-07-28 01:28 | NUR ---
Patient sleeping on her right side in bed.
--- NOTE | 2019-07-28 01:29 | NUR ---
Patient is quietly sleeping on his left side. In view from nursing station.
--- NOTE | 2019-07-28 04:10 | NUR ---
Patient is sleeping quietly on her left side. In view from nursing station.
--- NOTE | 2019-07-28 06:30 | NUR ---
pt awake, up getting dressed.
[2019-07-28] MEDS: aspirin 81mg tab.chew PO SCH (07:10)
[2019-07-28] MEDS: QUEtiapine 25mg tablet PO SCH ×2 (07:10→21:24)
[2019-07-28] MEDS: atorvastatin 20mg tablet PO SCH (07:10)
[2019-07-28] MEDS: HYDROcodone/acetaminophen 10/325mg tab PO SCH ×3 (07:11→21:25)
--- NOTE | 2019-07-28 08:30 | NUR ---
Pt up in chair eating breakfast.
[2019-07-28] MEDS: insulin Lispro (HumaLOG) vial - multi-dose SQ SCH ×3 (08:58→18:31)
--- NOTE | 2019-07-28 09:00 | NUR ---
Gave pt 9 units Humalog. Pt's FSBG this am was 176 but she had already drank some coffee with creamer so did not advance her from a level 2 at this time.
--- NOTE | 2019-07-28 11:00 | NUR ---
Pt awake, up sitting in her chair at bedside, appears comfortable.
--- NOTE | 2019-07-28 13:17 | NUR ---
Pt only ate a little salad and some of her peaches, stated the food looked and tasted like crap. Pt stated that she was irritable because she was in pain and hadn't had her pain pill yet. Adminstered routine [place] 10/325 mg. Encouraged pt to eat some more, offered her a sandwich. Pt declined stating that maybe she would have a sandwich later.
--- NOTE | 2019-07-28 13:40 | NUR ---
Pt stated she was having a little anxiety because, "I'm going home tomorrow, I don't like where I'm diann' right back where I came from but we'll do the best we can."
--- NOTE | 2019-07-28 14:39 | NUR ---
Pt requested her sandwich now, states she plans on going to bed early tonight to help her get over her "jitters" about going home tomorrow.
--- NOTE | 2019-07-28 15:30 | NUR ---
Pt is lying in bed napping.
--- NOTE | 2019-07-28 17:30 | NUR ---
Pt sitting in chair by her bed.
--- NOTE | 2019-07-28 17:40 | NUR ---
Poncho morfin in ED - 07/28/19 at 1758 by WALDEMAR Pt transferred from ER main accompanied by family.
--- NOTE | 2019-07-28 18:30 | NUR ---
Patient is ambulatory at shift change. She visits with nurses. Patient is without complaint. Patient is well oriented. There is no mental health hold at this time. Patient is cooperative with staff and medication compliant.
--- NOTE | 2019-07-28 19:30 | NUR ---
Patient is resting quietly. She has been up to the restroom to void. Patient ambulates without problem.
[2019-07-28] MEDS: insulin glargine (Lantus) pen - multi-dose SQ SCH (21:09)
[2019-07-28] MEDS: Melatonin 3mg tablet PO SCH (21:25)
--- NOTE | 2019-07-29 01:53 | NUR ---
Patient is sleeping on her right side in bed.
--- NOTE | 2019-07-29 05:24 | NUR ---
Patient is wide awake, folding her clothes, walking around the unit. The patient is advised other patients are sleeping. She is redirected back to bed.
[2019-07-29] MEDS: aspirin 81mg tab.chew PO SCH (07:12)
[2019-07-29] MEDS: atorvastatin 20mg tablet PO SCH (07:12)
[2019-07-29] MEDS: HYDROcodone/acetaminophen 10/325mg tab PO SCH ×3 (07:12→20:28)
[2019-07-29] MEDS: QUEtiapine 25mg tablet PO SCH ×2 (07:13→20:27)
--- NOTE | 2019-07-29 08:42 | NUR ---
received report from AIYANA AHUJA
[2019-07-29] MEDS: insulin Lispro (HumaLOG) vial - multi-dose SQ SCH ×3 (09:55→18:59)
--- NOTE | 2019-07-29 17:15 | NUR ---
PATIENT'S SON, JOSE LUDWIG, HERE TO VISIT. STATES HE MAY BE ABLE TO TAKE HER HOME IN THE NEAR FUTURE, BUT WOULD LIKE TO SPEAK WITH MENTAL HEALTH WORKER OR PUBLIC SAFETY TELECOMMUNICATOR. PHONE NUMBER FOR JOSE LUDWIG IS .
--- NOTE | 2019-07-29 18:40 | NUR ---
Pt. sitting up at bedside, eating dinner. Addendum: 07/29/19 at 1910 by NILO note written by martha
[2019-07-29] MEDS: Melatonin 3mg tablet PO SCH (20:27)
[2019-07-29] MEDS: insulin glargine (Lantus) pen - multi-dose SQ SCH (20:31)
[2019-07-30 06:01] VITALS: BP 125/70
--- NOTE | 2019-07-30 07:00 | NUR ---
walking around her bed and sitting up to chair independently. talking to her neighbor. calm and cooperative.
[2019-07-30] MEDS: QUEtiapine 25mg tablet PO SCH (08:28)
[2019-07-30] MEDS: aspirin 81mg tab.chew PO SCH (08:29)
[2019-07-30] MEDS: atorvastatin 20mg tablet PO SCH (08:29)
[2019-07-30] MEDS: HYDROcodone/acetaminophen 10/325mg tab PO SCH ×2 (08:29→12:32)
[2019-07-30] MEDS: insulin Lispro (HumaLOG) vial - multi-dose SQ SCH (08:48)
--- NOTE | 2019-07-30 08:49 | NUR ---
pt sitting up in chair this AM. Thinks her son is going to pick her up and take her home today. No known plan for him picking her up.
--- NOTE | 2019-07-30 08:59 | NUR ---
pt walking around the unit and talking to other pts, per pts ok.
--- NOTE | 2019-07-30 11:00 | NUR ---
pt son, Medhat, stating he will come to visit pt around 12pm and he is willing to take pt home with him if pt is willing to go. Kassidy, ER Director and Case Management involved. Pt states she is willing to go home with Medhat and states she is ready to go home. Powder Expert working on getting IHSS for pt and possibly home health if ok with Medhat. Dr. Kelly aware pts son is coming and will need discharge papers for pt.
--- NOTE | 2019-07-30 12:30 | NUR ---
REC'D PAGE FORM ER. PER RN, PATIENT'S SON IS WILLING TO TAKE PATIENT HOME. CALLED AND SPOKE WITH CATHERINE WOODWORKING BELT SANDER. SHE IS IN AGREEMENT WITH D/C PLAN. REQUESTED TO HAVE SON SIGN [facility] CERTIFICATE AND CATHERINE WILL COMPLETE PAPERWORK. PAPERWORK GIVEN TO RN. ALSO INFORMED RN THAT PATIENT IS ELIGIBLE FOR HH SERVICES. PER CATHERINE, THE SON WAS RELUCTANT IN THE PAST DUE TO THE FACT THAT HIS MOM REFUSED TO LET HH INTO THE HOME. CM INFORMED RN TO ASK SON AND PAGE CM IF HE IS REQUESTING HH SERVICES. ORDERS SIGNED BY . RESOURCES INFORMATION ALSO GIVEN TO RN FOR PATIENT. SPOKE TO PATIENT AND SHE IS DRESSED AND IS IN AGREEMENT TO DISCHARGE TO HOME TODAY.
--- NOTE | 2019-07-30 12:48 | NUR ---
pt discharged to home with son, Medhat. escorted to car by tech in wheelchair.
[2019-08-01] MEDS ORDERED: QUET25TA PO (14:40)
== END 2019-07-30 12:57 | disposition home or self-care (01) ==
LOC: ER 00:23
DX: S13.4XXA Sprain of ligaments of cervical spine, initial encounter (principal); S00.03XA Contusion of scalp, initial encounter; G30.9 Alzheimer's disease, unspecified; F02.81 Dementia in other diseases classified elsewhere, unspecified severity, with behavioral disturbance; F79 Unspecified intellectual disabilities; F98.9 Unspecified behavioral and emotional disorders with onset usually occurring in childhood and adolescence; Z79.82 Long term (current) use of aspirin; Z79.4 Long term (current) use of insulin; Z79.899 Other long term (current) drug therapy; W01.198A Fall on same level from slipping, tripping and stumbling with subsequent striking against other object, initial encounter; Y93.89 Activity, other specified; Y92.89 Other specified places as the place of occurrence of the external cause; Y99.9 Unspecified external cause status
CPT/HCPCS: 36415; 70450; 72125; 80053; 80305; 80320; 81001; 81003; 82948; 84443; 85025; 96372; 99285; J1815